=== PATIENT | male | born 1960 | race Caucasian/White ===

== ENCOUNTER 2018-01-16 20:46 | Emergency (ER) | payer SELFPAY ==
[~2018-01-16] VITALS: Ht 185.4 cm; Wt 121.0 kg
[2018-01-16 21:46] LABS: HEMATOCRIT 44.8 % (39.0-50.0); HEMOGLOBIN 15.5 g/dl (14.0-18.0); IMMATURE GRANULOCYTES 0.6 % (0.0-5.0); MEAN CELL VOLUME 83.6 fL CALC (80.0-100.0); MEAN CORPUSCULAR HGB 28.9 pG CALC (26.0-32.0); MEAN CORPUSCULAR HGB CONC 34.6 g/L CALC (32.0-36.0); NEUT# 5.88 thou/uL (1.82-7.42); RED BLOOD COUNT 5.36 mill/uL (4.70-6.10); RED CELL DISTRI WIDTH 13.9 % (11.5-15.5)
[2018-01-16 21:55] LABS: URINE BILIRUBIN - DIPSTICK NEGATIVE (NEGATIVE); URINE BLOOD DIPSTICK MODERATE (NEGATIVE); URINE CLARITY CLEAR; URINE COLOR YELLOW; URINE GLUCOSE - DIPSTICK NEGATIVE (NEGATIVE); URINE KETONE NEGATIVE (NEGATIVE); URINE LEUK ESTERASE NEGATIVE (NEGATIVE); URINE NITRITE - DIPSTICK NEGATIVE (Negative); URINE PROTEIN - DIPSTICK >=300 mg/dL (NEG-TRACE); URINE SPECIFIC GRAVITY >=1.030; URINE UROBILINOGEN - DIPSTICK 0.2 E.U./dL (0.2)
[2018-01-16 21:59] LABS: ALBUMIN 3.4 g/dL (3.2-5.0); ALKALINE PHOSPHATASE 75 u/l (38-126); AMYLASE 68 u/l (30-110); ANION GAP 10 (6-22 (CALC)); BILIRUBIN, TOTAL 0.4 mg/dL (0.0-1.4); BUN 23 mg/dL (9-20); BUN/CREATININE RATIO 16 (12-20 (CALC)); CARBON DIOXIDE 31 mmol/l (22-30); CHLORIDE 105 mmol/l (95-108); CREATININE 1.4 mg/dL (0.7-1.3); GFR 52 ML/MIN (>=60 (CALC)); GFR FOR AFR.AMER. > 60 ML/MIN (>=60 (CALC)); LIPASE 257 u/l (23-300); POTASSIUM 4.6 mmol/l (3.5-5.1); SGOT/AST 42 u/l (17-59); SODIUM 140 mmol/l (137-146); TOTAL PROTEIN 5.9 g/dL (6.3-8.2)
[2018-01-16 22:02] LABS: URINE WBC 0-2 WBC/hpf (0-5)
[2018-01-16] MEDS ORDERED: VOLTAREN - GENE75 MG PO (23:04)
[2018-01-16 23:20] VITALS: BP 140/72
== END 2018-01-16 23:20 | disposition home or self-care (01) | DRG 563 ==
LOC: ED 20:46
PROVIDERS: Family Medicine
DX: S39.011A Strain of muscle, fascia and tendon of abdomen, initial encounter (principal); F17.200 Nicotine dependence, unspecified, uncomplicated; X58.XXXA Exposure to other specified factors, initial encounter
CPT/HCPCS: Q9967

== ENCOUNTER 2018-09-01 05:36 | Emergency (ER) | payer SELFPAY ==
[~2018-09-01] VITALS: Ht 185.4 cm; Wt 121.6 kg
[~2018-09-01 05:36] MED LIST: VOLTAREN - GENE75 MG PO
--- NOTE | 2018-09-01 06:11 | NUR ---
BREATHING TREATMENT GIVEN WITH DUONEB. BREATHING TREATMENT FOR GOOD DEPOSITION TO THE LUNGS.
[2018-09-01 06:25] LABS: HEMATOCRIT 45.8 % (39.0-50.0); HEMOGLOBIN 15.5 g/dl (14.0-18.0); IMMATURE GRANULOCYTES 0.8 % (0.0-5.0); MEAN CELL VOLUME 83.1 fL CALC (80.0-100.0); MEAN CORPUSCULAR HGB 28.1 pG CALC (26.0-32.0); MEAN CORPUSCULAR HGB CONC 33.8 g/L CALC (32.0-36.0); NEUT# 7.1 thou/uL (1.82-7.42); RED BLOOD COUNT 5.51 mill/uL (4.70-6.10); RED CELL DISTRI WIDTH 14.1 % (11.5-15.5)
[2018-09-01 06:41] LABS: ALKALINE PHOSPHATASE 100 u/l (38-126); ANION GAP 14 (6-22 (CALC)); BILIRUBIN, TOTAL 0.4 mg/dL (0.0-1.4); BUN 12 mg/dL (9-20); BUN/CREATININE RATIO 9 (12-20 (CALC)); CARBON DIOXIDE 25 mmol/l (22-30); CHLORIDE 108 mmol/l (95-108); CREATININE 1.4 mg/dL (0.7-1.3); GFR 52 ML/MIN (>=60 (CALC)); GFR FOR AFR.AMER. > 60 ML/MIN (>=60 (CALC)); POTASSIUM 4.6 mmol/l (3.5-5.1); SGOT/AST 38 u/l (17-59); SODIUM 142 mmol/l (137-146); TOTAL PROTEIN 6.8 g/dL (6.3-8.2)
[2018-09-01] MEDS ORDERED: TESSALON PER100 MG PO (06:51)
[2018-09-01] MEDS ORDERED: DOXYCYCL HYC100 MG PO (06:51)
[2018-09-01 06:56] VITALS: BP 125/88
== END 2018-09-01 06:57 | disposition home or self-care (01) | DRG 203 ==
LOC: ED 05:36
PROVIDERS: Family Medicine
DX: J20.9 Acute bronchitis, unspecified (principal); F17.200 Nicotine dependence, unspecified, uncomplicated

== ENCOUNTER 2021-03-09 18:02 | Emergency (ER) | payer SELFPAY ==
[~2021-03-09] VITALS: Ht 185.4 cm; Wt 108.8 kg
[~2021-03-09 18:02] MED LIST changes: +DOXYCYCL HYC100 MG PO; +TESSALON PER100 MG PO
[2021-03-09 19:09] LABS: HEMATOCRIT 42.2 % (39.0-50.0); HEMOGLOBIN 14.1 g/dl (14.0-18.0); IMMATURE GRANULOCYTES 0.4 % (0.0-5.0); MEAN CELL VOLUME 84.1 fL CALC (80.0-100.0); MEAN CORPUSCULAR HGB 28.1 pG CALC (26.0-32.0); MEAN CORPUSCULAR HGB CONC 33.4 g/dL CAL (32.0-36.0); NEUT# 7.18 thou/uL (1.82-7.42); RED BLOOD COUNT 5.02 mill/uL (4.70-6.10)
[2021-03-09 19:11] LABS: URINE BILIRUBIN - DIPSTICK NEGATIVE (NEGATIVE); URINE BLOOD DIPSTICK MODERATE (NEGATIVE); URINE COLOR YELLOW; URINE GLUCOSE - DIPSTICK 100 mg/dL (NEGATIVE); URINE KETONE NEGATIVE (NEGATIVE); URINE LEUK ESTERASE NEGATIVE (NEGATIVE); URINE PROTEIN - DIPSTICK >=300 mg/dL (NEG-TRACE); URINE SPECIFIC GRAVITY 1.025; URINE UROBILINOGEN - DIPSTICK 0.2 E.U./dL (0.2)
[2021-03-09 19:21] LABS: URINE NITRITE - DIPSTICK NEGATIVE (Negative)
[2021-03-09 19:24] LABS: ALBUMIN 3.7 g/dL (3.2-5.0); ALKALINE PHOSPHATASE 99 u/l (38-126); ANION GAP 9 (6-22 (CALC)); BILIRUBIN, TOTAL 0.4 mg/dL (0.0-1.4); BUN 26 mg/dL (9-20); BUN/CREATININE RATIO 10 (12-20 (CALC)); CARBON DIOXIDE 29 mmol/l (22-30); CHLORIDE 105 mmol/l (95-108); GFR 25 ML/MIN (>=60 (CALC)); GFR FOR AFR.AMER. 31 ML/MIN (>=60 (CALC)); LIPASE 114 u/l (23-300); POTASSIUM 4.2 mmol/l (3.5-5.1); SGOT/AST 43 u/l (17-59); SODIUM 139 mmol/l (137-146)
[2021-03-09 19:25] LABS: URINE SQUAMOUS EPITHELIAL CELL FEW EPI/hpf (0-FEW); URINE WBC 0-2 WBC/hpf (0-5)
[2021-03-09 19:26] LABS: URINE HYALINE CAST RARE lpf (NONE-RARE)
[2021-03-09 19:27] LABS: CREATININE 2.6 mg/dL (0.7-1.3)
[2021-03-09] MEDS ORDERED: VIBRAMYCIN100 M2 PO (20:53)
[2021-03-09 21:26] VITALS: BP 142/84
== END 2021-03-09 21:27 | disposition home or self-care (01) | DRG 603 ==
LOC: ED 18:02
PROVIDERS: Family Medicine
DX: L03.311 Cellulitis of abdominal wall (principal); N18.9 Chronic kidney disease, unspecified; F17.210 Nicotine dependence, cigarettes, uncomplicated

== ENCOUNTER 2021-08-01 15:14 | Observation (INO) | payer SELFPAY ==
[~2021-08-01] VITALS: Ht 185.4 cm; Wt 120.0 kg
[~2021-08-01 15:14] MED LIST changes: +VIBRAMYCIN100 M2 PO
[2021-08-01 16:02] LABS: HEMATOCRIT 42.3 % (39.0-50.0); HEMOGLOBIN 14.2 g/dl (14.0-18.0); IMMATURE GRANULOCYTES 0.6 % (0.0-5.0); MEAN CELL VOLUME 84.6 fL CALC (80.0-100.0); MEAN CORPUSCULAR HGB 28.4 pG CALC (26.0-32.0); MEAN CORPUSCULAR HGB CONC 33.6 g/dL CAL (32.0-36.0); NEUT# 6.52 thou/uL (1.82-7.42); RED CELL DISTRI WIDTH 14.4 % (11.5-15.5)
[2021-08-01 16:22] LABS: ALBUMIN 3.8 g/dL (3.2-5.0); BILIRUBIN, TOTAL 0.3 mg/dL (0.0-1.4); CREATININE 2.2 mg/dL (0.7-1.3); POTASSIUM 4.7 mmol/l (3.5-5.1); TOTAL PROTEIN 7.1 g/dL (6.3-8.2)
[2021-08-01 20:06] VITALS: BP 180/91
[2021-08-02 04:10] VITALS: BP 142/70
[2021-08-02 05:26] LABS: HEMATOCRIT 42.9 % (39.0-50.0); HEMOGLOBIN 14.2 g/dl (14.0-18.0); MEAN CORPUSCULAR HGB 28.5 pG CALC (26.0-32.0); MEAN CORPUSCULAR HGB CONC 33.1 g/dL CAL (32.0-36.0); RED BLOOD COUNT 4.99 mill/uL (4.70-6.10); RED CELL DISTRI WIDTH 14.6 % (11.5-15.5)
[2021-08-02 05:47] LABS: MAGNESIUM 1.8 mg/dL (1.6-2.3)
[2021-08-02 05:48] LABS: POTASSIUM 5.4 mmol/l (3.5-5.1)
[2021-08-02 07:05] VITALS: BP 155/92
[2021-08-02 19:05] VITALS: BP 144/85
[2021-08-03 05:09] LABS: HEMATOCRIT 43.7 % (39.0-50.0); HEMOGLOBIN 14.6 g/dl (14.0-18.0); MEAN CELL VOLUME 85.5 fL CALC (80.0-100.0); MEAN CORPUSCULAR HGB 28.6 pG CALC (26.0-32.0); MEAN CORPUSCULAR HGB CONC 33.4 g/dL CAL (32.0-36.0); RED BLOOD COUNT 5.11 mill/uL (4.70-6.10); RED CELL DISTRI WIDTH 14.3 % (11.5-15.5)
[2021-08-03 05:13] VITALS: BP 176/106
[2021-08-03 05:36] LABS: MAGNESIUM 1.7 mg/dL (1.6-2.3)
[2021-08-03 05:39] LABS: POTASSIUM 5.2 mmol/l (3.5-5.1)
[2021-08-03 07:27] VITALS: BP 154/95
[2021-08-03 08:00] VITALS: BP 154/95
[2021-08-03] MEDS ORDERED: KEFLEX500 MG PO (10:45)
== END 2021-08-03 12:25 | disposition home or self-care (01) | DRG 603 ==
LOC: ED 15:14 → ED-I 16:53 → ED 18:11 → MS2 18:11
PROVIDERS: Nurse Practitioner; ADMIT Hospitalist; ATTEND Hospitalist
PROC: 0H97XZZ Drainage of Abdomen Skin, External Approach (ICD-10-PCS; principal; 2021-08-02)
DX: L03.311 Cellulitis of abdominal wall (principal); L02.211 Cutaneous abscess of abdominal wall; N18.4 Chronic kidney disease, stage 4 (severe); I12.9 Hypertensive chronic kidney disease with stage 1 through stage 4 chronic kidney disease, or unspecified chronic kidney disease; F17.200 Nicotine dependence, unspecified, uncomplicated; B95.61 Methicillin susceptible Staphylococcus aureus infection as the cause of diseases classified elsewhere; Z20.822 Contact with and (suspected) exposure to COVID-19
CPT/HCPCS: G0378; J3370; Q9967

== ENCOUNTER 2021-09-08 23:06 | Emergency (ER) | payer SELFPAY ==
[~2021-09-08] VITALS: Ht 185.4 cm; Wt 120.0 kg
[~2021-09-08 23:06] MED LIST changes: +KEFLEX500 MG PO
[2021-09-08 23:34] VITALS: BP 147/92
[2021-09-08 23:46] VITALS: BP 148/87
[2021-09-09 00:01] VITALS: BP 139/82
[2021-09-09] MEDS ORDERED: CEPHALEXIN500 MG PO (00:08)
[2021-09-09 00:12] LABS: HEMOGLOBIN 13.5 g/dl (14.0-18.0); IMMATURE GRANULOCYTES 0.5 % (0.0-5.0); MEAN CELL VOLUME 82.5 fL CALC (80.0-100.0); MEAN CORPUSCULAR HGB 27.8 pG CALC (26.0-32.0); MEAN CORPUSCULAR HGB CONC 33.8 g/dL CAL (32.0-36.0); NEUT# 5.57 thou/uL (1.82-7.42); RED BLOOD COUNT 4.85 mill/uL (4.70-6.10)
[2021-09-09 00:16] VITALS: BP 130/80
[2021-09-09 00:25] LABS: ALBUMIN 3.8 g/dL (3.2-5.0); ALKALINE PHOSPHATASE 104 u/l (38-126); ANION GAP 10 (6-22 (CALC)); BILIRUBIN, TOTAL 0.3 mg/dL (0.0-1.4); BUN 31 mg/dL (9-20); BUN/CREATININE RATIO 12 (12-20 (CALC)); CARBON DIOXIDE 27 mmol/l (22-30); CHLORIDE 104 mmol/l (95-108); CREATININE 2.6 mg/dL (0.7-1.3); GFR FOR AFR.AMER. 31 ML/MIN (>=60 (CALC)); GFR OTHER RACES 25 ML/MIN (>=60 (CALC)); POTASSIUM 4.5 mmol/l (3.5-5.1); SGOT/AST 62 u/l (17-59); SODIUM 137 mmol/l (137-146); TOTAL PROTEIN 6.9 g/dL (6.3-8.2)
[2021-09-09 00:31] VITALS: BP 130/82
[2021-09-09 00:37] LABS: D-DIMER 0.5 mg/L (0.19-0.60); MYOGLOBIN 133 ng/mL (0 - 121)
[2021-09-09 00:39] LABS: ACT PARTIAL THROMBO TIME 22.3 SECONDS (20.0-32.5); PROTHROMBIN TIME 10.3 SECONDS (9.0-12.5)
[2021-09-09 00:46] VITALS: BP 119/93
[2021-09-09] MEDS ORDERED: BACTRIM DS1 TAB PO (02:21)
[2021-09-09 02:33] VITALS: BP 159/83
[2021-09-09] MEDS ORDERED: TRAMADOL HCL50 MG PO (02:35)
[2021-09-09 02:45] VITALS: BP 159/83
[2021-09-09] MEDS ORDERED: ALBUTEROL SUL0.083 % IN (02:45)
== END 2021-09-09 02:50 | disposition home or self-care (01) | DRG 863 ==
LOC: ED 23:06
PROVIDERS: Family Medicine
DX: T81.41XA Infection following a procedure, superficial incisional surgical site, initial encounter (principal); L02.211 Cutaneous abscess of abdominal wall; T81.31XA Disruption of external operation (surgical) wound, not elsewhere classified, initial encounter; E11.22 Type 2 diabetes mellitus with diabetic chronic kidney disease; N18.9 Chronic kidney disease, unspecified; F17.200 Nicotine dependence, unspecified, uncomplicated; B96.89 Other specified bacterial agents as the cause of diseases classified elsewhere; Y83.8 Other surgical procedures as the cause of abnormal reaction of the patient, or of later complication, without mention of misadventure at the time of the procedure

== ENCOUNTER 2021-09-10 18:53 | Emergency (ER) | payer SELFPAY ==
[~2021-09-10] VITALS: Ht 185.4 cm; Wt 120.0 kg
[~2021-09-10 18:53] MED LIST changes: +ALBUTEROL SUL0.083 % IN; +BACTRIM DS1 TAB PO; +CEPHALEXIN500 MG PO; +TRAMADOL HCL50 MG PO
[2021-09-10 19:34] VITALS: BP 113/85
== END 2021-09-10 19:45 | disposition home or self-care (01) | DRG 951 ==
LOC: ED 18:53
DX: Z48.01 Encounter for change or removal of surgical wound dressing (principal); I10 Essential (primary) hypertension; F17.200 Nicotine dependence, unspecified, uncomplicated

== ENCOUNTER 2021-09-12 10:28 | Emergency (ER) | payer SELFPAY ==
[~2021-09-12] VITALS: Ht 185.4 cm; Wt 122.0 kg
[2021-09-12 12:44] VITALS: BP 168/91
== END 2021-09-12 12:40 | disposition home or self-care (01) | DRG 950 ==
LOC: ED 10:28
DX: T81.31XD Disruption of external operation (surgical) wound, not elsewhere classified, subsequent encounter (principal); Y83.8 Other surgical procedures as the cause of abnormal reaction of the patient, or of later complication, without mention of misadventure at the time of the procedure; I10 Essential (primary) hypertension; F17.200 Nicotine dependence, unspecified, uncomplicated

== ENCOUNTER 2021-10-29 19:51 | Emergency (ER) | payer SELFPAY ==
[~2021-10-29] VITALS: Ht 185.4 cm; Wt 120.4 kg
[2021-10-29] VITALS (7 sets, daily range): BP systolic 110–170; BP diastolic 82–105
[2021-10-29 21:37] LABS: HEMATOCRIT 39.4 % (39.0-50.0); HEMOGLOBIN 13.3 g/dl (14.0-18.0); IMMATURE GRANULOCYTES 0.6 % (0.0-5.0); MEAN CELL VOLUME 83.7 fL CALC (80.0-100.0); MEAN CORPUSCULAR HGB 28.2 pG CALC (26.0-32.0); MEAN CORPUSCULAR HGB CONC 33.8 g/dL CAL (32.0-36.0); NEUT# 4.78 thou/uL (1.82-7.42); RED BLOOD COUNT 4.71 mill/uL (4.70-6.10); RED CELL DISTRI WIDTH 14.3 % (11.5-15.5)
[2021-10-29 21:53] LABS: ALBUMIN 3.5 g/dL (3.2-5.0); BILIRUBIN, TOTAL 0.2 mg/dL (0.0-1.4); CREATININE 2.3 mg/dL (0.7-1.3); POTASSIUM 4.8 mmol/l (3.5-5.1); TOTAL PROTEIN 5.9 g/dL (6.3-8.2)
[2021-10-29 22:07] LABS: MYOGLOBIN 115 ng/mL (0 - 121)
[2021-10-29] MEDS ORDERED: KEFLEX500 MG PO (23:02)
== END 2021-10-29 23:48 | disposition home or self-care (01) | DRG 639 ==
LOC: ED 19:51
PROVIDERS: Emergency Medicine
DX: E11.65 Type 2 diabetes mellitus with hyperglycemia (principal); J06.9 Acute upper respiratory infection, unspecified

== ENCOUNTER 2021-11-14 09:05 | Emergency (ER) | payer SELFPAY ==
[2021-11-14] VITALS (9 sets, daily range): BP systolic 132–163; BP diastolic 86–95
[~2021-11-14] VITALS: Ht 185.4 cm; Wt 120.4 kg
[2021-11-14 09:51] LABS: HEMOGLOBIN 13.2 g/dl (14.0-18.0); IMMATURE GRANULOCYTES 0.7 % (0.0-5.0); MEAN CORPUSCULAR HGB 28.8 pG CALC (26.0-32.0); MEAN CORPUSCULAR HGB CONC 34.7 g/dL CAL (32.0-36.0); NEUT# 4.28 thou/uL (1.82-7.42); RED BLOOD COUNT 4.58 mill/uL (4.70-6.10); RED CELL DISTRI WIDTH 14.4 % (11.5-15.5)
[2021-11-14 10:35] LABS: ALBUMIN 3.9 g/dL (3.2-5.0); BILIRUBIN, TOTAL 0.3 mg/dL (0.0-1.4); CREATININE 2.2 mg/dL (0.7-1.3); POTASSIUM 5.2 mmol/l (3.5-5.1); TOTAL PROTEIN 6.6 g/dL (6.3-8.2)
[2021-11-14] MEDS ORDERED: GLIPIZIDE5 M2 PO (12:28)
[2021-11-14] MEDS ORDERED: ZESTRIL5 M1 PO (12:28)
[2021-11-14] MEDS ORDERED: ATORVASTATIN CA80 MG PO (12:28)
[2021-11-14] MEDS ORDERED: TRAMADOL HYDROC50 M1 PO (12:33)
[2021-11-14] MEDS ORDERED: HYDROCHLOROT12.5 M1 PO (12:33)
== END 2021-11-14 13:32 | disposition left against medical advice (07) | DRG 313 ==
LOC: ED 09:05
PROVIDERS: Family Medicine
DX: R07.9 Chest pain, unspecified (principal); E11.8 Type 2 diabetes mellitus with unspecified complications; I10 Essential (primary) hypertension; E66.9 Obesity, unspecified

== ENCOUNTER 2022-02-24 17:01 | Emergency (ER) | payer SELFPAY ==
[~2022-02-24] VITALS: Ht 185.4 cm; Wt 120.4 kg
[2022-02-24] VITALS (9 sets, daily range): BP systolic 109–155; BP diastolic 74–84
[~2022-02-24 17:01] MED LIST changes: +ATORVASTATIN CA80 MG PO; +GLIPIZIDE5 M2 PO; +HYDROCHLOROT12.5 M1 PO; +TRAMADOL HYDROC50 M1 PO; +ZESTRIL5 M1 PO
[2022-02-24 17:51] LABS: HEMATOCRIT 35.3 % (39.0-50.0); HEMOGLOBIN 12.4 g/dl (14.0-18.0); IMMATURE GRANULOCYTES 0.9 % (0.0-5.0); MEAN CELL VOLUME 83.6 fL CALC (80.0-100.0); MEAN CORPUSCULAR HGB 29.4 pG CALC (26.0-32.0); MEAN CORPUSCULAR HGB CONC 35.1 g/dL CAL (32.0-36.0); NEUT# 9.48 thou/uL (1.82-7.42); RED BLOOD COUNT 4.22 mill/uL (4.70-6.10); RED CELL DISTRI WIDTH 15.4 % (11.5-15.5)
[2022-02-24 18:02] LABS: ALBUMIN 3.9 g/dL (3.2-5.0); ALKALINE PHOSPHATASE 129 u/l (38-126); ANION GAP 14 (6-22 (CALC)); BILIRUBIN, TOTAL 0.3 mg/dL (0.0-1.4); CARBON DIOXIDE 25 mmol/l (22-30); CHLORIDE 100 mmol/l (95-108); CREATININE 2.6 mg/dL (0.7-1.3); GFR FOR AFR.AMER. 31 ML/MIN (>=60 (CALC)); GFR OTHER RACES 25 ML/MIN (>=60 (CALC)); SGOT/AST 36 u/l (19-48); SODIUM 134 mmol/l (137-146); TOTAL PROTEIN 6.9 g/dL (6.3-8.2)
[2022-02-24 18:04] LABS: BUN 48 mg/dL (8-23); BUN/CREATININE RATIO 18 (12-20 (CALC))
[2022-02-24 20:23] LABS: URINE BILIRUBIN - DIPSTICK NEGATIVE (NEGATIVE); URINE BLOOD DIPSTICK SMALL (NEGATIVE); URINE COLOR YELLOW; URINE GLUCOSE - DIPSTICK 500 mg/dL (NEGATIVE); URINE KETONE NEGATIVE (NEGATIVE); URINE LEUK ESTERASE NEGATIVE (NEGATIVE); URINE PROTEIN - DIPSTICK 100 mg/dL (NEG-TRACE); URINE UROBILINOGEN - DIPSTICK 0.2 E.U./dL (0.2)
[2022-02-24 20:34] LABS: URINE NITRITE - DIPSTICK NEGATIVE (Negative)
[2022-02-24 20:35] LABS: URINE SQUAMOUS EPITHELIAL CELL FEW EPI/hpf (0-FEW); URINE WBC 0-2 WBC/hpf (0-5)
[2022-02-24] MEDS ORDERED: VIBRAMYCIN100 M2 PO (20:49)
[2022-02-24] MEDS ORDERED: GLIPIZIDE10 M2 PO (20:49)
== END 2022-02-24 21:06 | disposition home or self-care (01) | DRG 639 ==
LOC: ED 17:01
PROVIDERS: Family Medicine
DX: E11.65 Type 2 diabetes mellitus with hyperglycemia (principal); I10 Essential (primary) hypertension; J20.9 Acute bronchitis, unspecified; F17.210 Nicotine dependence, cigarettes, uncomplicated; Z79.4 Long term (current) use of insulin; Z20.822 Contact with and (suspected) exposure to COVID-19

== ENCOUNTER 2022-06-17 11:34 | Emergency (ER) | payer SELFPAY ==
[2022-06-17] VITALS (7 sets, daily range): BP systolic 141–161; BP diastolic 83–127
[~2022-06-17] VITALS: Ht 185.4 cm; Wt 120.0 kg
[~2022-06-17 11:34] MED LIST changes: +GLIPIZIDE10 M2 PO
[2022-06-17 12:22] LABS: BASO% 0.4 % (0-3); EOS% 3.4 % (0-8); HEMOGLOBIN 13.9 g/dl (14.0-18.0); IMMATURE GRANULOCYTES 0.4 % (0.0-5.0); LYMPH% 18.5 % (15-41); MEAN CORPUSCULAR HGB 27.4 pG CALC (26.0-32.0); MONO% 7.1 % (2-13); NEUT# 5.24 thou/uL (1.82-7.42); NEUT% 70.2 % (42-76); RED BLOOD COUNT 5.07 mill/uL (4.70-6.10); RED CELL DISTRI WIDTH 14.3 % (11.5-15.5)
[2022-06-17 12:31] LABS: HEMATOCRIT 42.1 % (39.0-50.0)
[2022-06-17 12:42] LABS: ALBUMIN 3.9 g/dL (3.2-5.0); ALKALINE PHOSPHATASE 94 u/l (38-126); ANION GAP 11 (6-22 (CALC)); BILIRUBIN, TOTAL 0.2 mg/dL (0.2-1.3); BUN/CREATININE RATIO 10 (12-20 (CALC)); CARBON DIOXIDE 26 mmol/l (22-30); CHLORIDE 107 mmol/l (95-108); CREATININE 2.4 mg/dL (0.7-1.3); GFR FOR AFR.AMER. 33 ML/MIN (>=60 (CALC)); GFR OTHER RACES 28 ML/MIN (>=60 (CALC)); POTASSIUM 4.8 mmol/l (3.5-5.1); SGOT/AST 41 u/l (19-48); SODIUM 140 mmol/l (137-146); TOTAL PROTEIN 6.7 g/dL (6.3-8.2)
[2022-06-17 12:48] LABS: BUN 23 mg/dL (8-23)
[2022-06-17] MEDS ORDERED: ZPAK PO (13:32)
[2022-06-17] MEDS ORDERED: LIPITOR40 M1 PO (13:32)
[2022-06-17] MEDS ORDERED: GLIPIZIDE10 M3 PO (13:32)
[2022-06-17] MEDS ORDERED: LOSARTAN POTASS50 MG PO (13:32)
[2022-06-17] MEDS ORDERED: VENTOLIN HFA108 MCG PO (13:32)
[2022-06-17] MEDS ORDERED: IPRATROPIU0.5 MG/3 M IN (13:32)
[2022-06-17] MEDS ORDERED: PREDNISONE50 MG PO (13:32)
== END 2022-06-17 14:10 | disposition left against medical advice (07) | DRG 192 ==
LOC: ED 11:34
PROVIDERS: Family Medicine
DX: J44.1 Chronic obstructive pulmonary disease with (acute) exacerbation (principal); N18.9 Chronic kidney disease, unspecified; I12.9 Hypertensive chronic kidney disease with stage 1 through stage 4 chronic kidney disease, or unspecified chronic kidney disease; E11.9 Type 2 diabetes mellitus without complications; Z79.84 Long term (current) use of oral hypoglycemic drugs; Z53.29 Procedure and treatment not carried out because of patient's decision for other reasons; F17.210 Nicotine dependence, cigarettes, uncomplicated

== ENCOUNTER 2022-06-24 18:22 | Observation (INO) | payer SELFPAY ==
[~2022-06-24] VITALS: Ht 185.4 cm; Wt 127.0 kg
[~2022-06-24 18:22] MED LIST changes: +GLIPIZIDE10 M3 PO; +IPRATROPIU0.5 MG/3 M IN; +LIPITOR40 M1 PO; +LOSARTAN POTASS50 MG PO; +PREDNISONE50 MG PO; +VENTOLIN HFA108 MCG PO; +ZPAK PO
[2022-06-24 18:51] VITALS: BP 161/87
--- NOTE | 2022-06-24 18:54 | NUR ---
pt states he has not felt himself today, states that he has not taken his glipizide today. states his last blood sugar was 459.
[2022-06-24 19:00] VITALS: BP 153/88
[2022-06-24 19:18] LABS: BASO% 0.2 % (0-3); EOS% 2.6 % (0-8); HEMOGLOBIN 13.7 g/dl (14.0-18.0); IMMATURE GRANULOCYTES 1.1 % (0.0-5.0); LYMPH% 18.6 % (15-41); MEAN CELL VOLUME 82.4 fL CALC (80.0-100.0); MEAN CORPUSCULAR HGB 26.9 pG CALC (26.0-32.0); MEAN CORPUSCULAR HGB CONC 32.6 g/dL CAL (32.0-36.0); MONO% 5.5 % (2-13); NEUT# 6.97 thou/uL (1.82-7.42); RED BLOOD COUNT 5.1 mill/uL (4.70-6.10); RED CELL DISTRI WIDTH 14.7 % (11.5-15.5)
[2022-06-24 19:30] VITALS: BP 146/88
[2022-06-24 19:32] LABS: ALBUMIN 3.6 g/dL (3.2-5.0); ALKALINE PHOSPHATASE 112 u/l (38-126); ANION GAP 10 (6-22 (CALC)); BILIRUBIN, TOTAL 0.3 mg/dL (0.2-1.3); BUN 43 mg/dL (8-23); BUN/CREATININE RATIO 18 (12-20 (CALC)); CARBON DIOXIDE 31 mmol/l (22-30); CHLORIDE 99 mmol/l (95-108); CREATININE 2.4 mg/dL (0.7-1.3); GFR FOR AFR.AMER. 33 ML/MIN (>=60 (CALC)); GFR OTHER RACES 28 ML/MIN (>=60 (CALC)); POTASSIUM 4.8 mmol/l (3.5-5.1); SGOT/AST 37 u/l (19-48); SODIUM 136 mmol/l (137-146); TOTAL PROTEIN 6.2 g/dL (6.3-8.2)
[2022-06-24 19:42] LABS: URINE BILIRUBIN - DIPSTICK NEGATIVE (NEGATIVE); URINE BLOOD DIPSTICK SMALL (NEGATIVE); URINE COLOR YELLOW; URINE GLUCOSE - DIPSTICK >=1000 mg/dL (NEGATIVE); URINE KETONE NEGATIVE (NEGATIVE); URINE LEUK ESTERASE NEGATIVE (NEGATIVE); URINE NITRITE - DIPSTICK NEGATIVE (Negative); URINE PH 6.5 (4.5-8.0); URINE PROTEIN - DIPSTICK >=300 mg/dL (NEG-TRACE); URINE SPECIFIC GRAVITY 1.015; URINE UROBILINOGEN - DIPSTICK 0.2 E.U./dL (0.2)
[2022-06-24 20:01] VITALS: BP 153/90
[2022-06-24 20:31] VITALS: BP 127/92
--- NOTE | 2022-06-24 21:00 | NUR ---
PT HAS C/O OF LEG CRAMPS, HELPED PT STAND AND CRAMPS SUBSIDED. VSS, NAD.
--- NOTE | 2022-06-24 21:56 | NUR ---
MD GAVE ORDERS FOR ADA DIET AND OK TO HAVE FLUIDS, PT BEING ADMITTED AND VSS, NAD AT THIS TIME.
--- NOTE | 2022-06-24 22:28 | NUR ---
ICU 7 given for bed assignment.
--- NOTE | 2022-06-25 01:14 | NUR ---
PATIENT ADMITTED TO ICU, MS ADMIT ICU OVERFLOW.
[2022-06-25 05:14] LABS: BASO% 0.2 % (0-3); EOS% 3.1 % (0-8); HEMATOCRIT 42.3 % (39.0-50.0); HEMOGLOBIN 13.7 g/dl (14.0-18.0); IMMATURE GRANULOCYTES 2.2 % (0.0-5.0); LYMPH% 18.9 % (15-41); MEAN CELL VOLUME 83.8 fL CALC (80.0-100.0); MEAN CORPUSCULAR HGB 27.1 pG CALC (26.0-32.0); MEAN CORPUSCULAR HGB CONC 32.4 g/dL CAL (32.0-36.0); MONO% 6.8 % (2-13); NEUT# 6.28 thou/uL (1.82-7.42); NEUT% 68.8 % (42-76); RED BLOOD COUNT 5.05 mill/uL (4.70-6.10); RED CELL DISTRI WIDTH 14.6 % (11.5-15.5)
[2022-06-25 05:27] LABS: ALBUMIN 3.4 g/dL (3.2-5.0); BILIRUBIN, TOTAL 0.3 mg/dL (0.2-1.3); CREATININE 2.1 mg/dL (0.7-1.3); MAGNESIUM 1.6 mg/dL (1.6-2.3); TOTAL PROTEIN 5.7 g/dL (6.3-8.2)
[2022-06-25 05:34] LABS: POTASSIUM 5.4 mmol/l (3.5-5.1)
--- NOTE | 2022-06-25 08:08 | NUR ---
PT AWAKE, ALERT, ORIENTED X 3, SITTING UP IN CHAIR AT BEDSIDE. PT STATES THAT HE RAN OUT OF HIS MEDS, STARTED FEELING POORL, CAME TO HOSPITAL. NAD.
--- NOTE | 2022-06-25 10:47 | NUR ---
PT SEEN BY DR KOENIG THIS MORNING, DISCUSSED LONG LASTING INSULIN. PT AGREED TO SPEND ONE MORE NIGHT.
--- NOTE | 2022-06-25 13:20 | NUR ---
PT SEEN BY TAMARA FROM DIETARY, SPEAKS ABOUT GOOD DIETARY CHOICES. AIC RESULTED, SHOWN TO PT. NO DISTRESS, AMBULATORY TO BR.
--- NOTE | 2022-06-25 18:23 | NUR ---
PT REMAINS AT REST IN THE BED, AMBULATORY TO BR NEEDED. GIRLFRIEND AT BEDSIDE. BS 147, PT PLEASED.
--- NOTE | 2022-06-25 19:15 | NUR ---
awakens easily. denies distress. hydraulic jack mechanic shows sinus rhythm. #20 saline locks lfa & rac. po fluids taken well. voids per urinal. fall precautions cont.
[2022-06-25 19:33] VITALS: BP 142/80
[2022-06-25 20:00] VITALS: BP 134/75
--- NOTE | 2022-06-25 21:00 | NUR ---
sitting on side of bed eating chex mix. glucometer 309. pt upset because of result. instructed pt he was eating handfuls of carbs. asked pt if he wanted dietary to see him & recommend a diet. pt refused & said "i'm going home tomorrow." asked pt if he smoked. he said he did. offered nicotine patch but pt refused.
[2022-06-25 21:01] VITALS: BP 172/92
--- NOTE | 2022-06-25 22:00 | NUR ---
awake. using cell phone. no apparent distress.
[2022-06-25 22:01] VITALS: BP 121/82
[2022-06-25 23:00] VITALS: BP 146/76
--- NOTE | 2022-06-26 00:01 | NUR ---
eyes closed. no distress. cardic monitor shows sinus rhythm ivcd.
--- NOTE | 2022-06-26 02:00 | NUR ---
resting quietly. resps even & unlabored. no apparent distress.
--- NOTE | 2022-06-26 04:45 | NUR ---
lab here. blood drawn.
[2022-06-26 05:38] LABS: HEMATOCRIT 42.1 % (39.0-50.0); HEMOGLOBIN 13.8 g/dl (14.0-18.0); MEAN CELL VOLUME 83.4 fL CALC (80.0-100.0); MEAN CORPUSCULAR HGB 27.3 pG CALC (26.0-32.0); MEAN CORPUSCULAR HGB CONC 32.8 g/dL CAL (32.0-36.0); RED BLOOD COUNT 5.05 mill/uL (4.70-6.10); RED CELL DISTRI WIDTH 14.5 % (11.5-15.5)
[2022-06-26 05:55] LABS: ALBUMIN 3.7 g/dL (3.2-5.0); BILIRUBIN, TOTAL 0.2 mg/dL (0.2-1.3); CREATININE 2.5 mg/dL (0.7-1.3); MAGNESIUM 1.7 mg/dL (1.6-2.3); POTASSIUM 4.7 mmol/l (3.5-5.1); TOTAL PROTEIN 6.3 g/dL (6.3-8.2)
--- NOTE | 2022-06-26 07:37 | NUR ---
PT AWAKE, ALERT, ORIENTED X 3. PT SITTING UP IN BED, PROVIDED COFFEE. BS 175 THIS MORNING, PROVIDED 1 UNIT HUMALOG PER SCALE.
[2022-06-26] MEDS ORDERED: GABAPENTIN100 MG PO (08:43)
[2022-06-26] MEDS ORDERED: LANTUS SOL100 UNIT/M SC (08:44)
--- NOTE | 2022-06-26 10:15 | NUR ---
PT VERBALIZES UNDERSTANDING OF DC INSTRUCTIONS, TAKEN BY WHEELCHAIR TO VEHICLE. PT LEAVES DMH IN STABLE CONDITION.
--- NOTE | 2022-06-27 15:15 | NUR ---
Reviewed wound culture result from 06/25/22, growing MSSA. Discussed with Dr Montana and received verbal order for Augmentin 875 mg po bid x 10 days. Contacted patient and advised to start Augmentin. Rx called in to [facility].
== END 2022-06-26 10:15 | disposition home or self-care (01) | DRG 639 ==
LOC: ED 18:22 → ICU 22:44
PROVIDERS: Family Medicine; Internal Medicine; ADMIT Internal Medicine; ATTEND Internal Medicine
DX: E11.65 Type 2 diabetes mellitus with hyperglycemia (principal); I12.9 Hypertensive chronic kidney disease with stage 1 through stage 4 chronic kidney disease, or unspecified chronic kidney disease; E11.22 Type 2 diabetes mellitus with diabetic chronic kidney disease; N18.9 Chronic kidney disease, unspecified; E11.42 Type 2 diabetes mellitus with diabetic polyneuropathy; J44.9 Chronic obstructive pulmonary disease, unspecified; I87.2 Venous insufficiency (chronic) (peripheral); E66.9 Obesity, unspecified; R60.0 Localized edema; E78.00 Pure hypercholesterolemia, unspecified; F17.200 Nicotine dependence, unspecified, uncomplicated; T81.89XA Other complications of procedures, not elsewhere classified, initial encounter; Y83.8 Other surgical procedures as the cause of abnormal reaction of the patient, or of later complication, without mention of misadventure at the time of the procedure; Z79.84 Long term (current) use of oral hypoglycemic drugs

== ENCOUNTER 2022-09-12 14:24 | Observation (INO) | payer SELFPAY ==
[2022-09-12] VITALS (14 sets, daily range): BP systolic 107–159; BP diastolic 66–94
[~2022-09-12] VITALS: Ht 185.4 cm; Wt 130.0 kg
[~2022-09-12 14:24] MED LIST changes: +GABAPENTIN100 MG PO; +LANTUS SOL100 UNIT/M SC
[2022-09-12 14:50] LABS: BASO% 0.3 % (0-3); HEMATOCRIT 39.5 % (39.0-50.0); IMMATURE GRANULOCYTES 0.5 % (0.0-5.0); MEAN CELL VOLUME 82.8 fL CALC (80.0-100.0); MEAN CORPUSCULAR HGB 27.3 pG CALC (26.0-32.0); MEAN CORPUSCULAR HGB CONC 32.9 g/dL CAL (32.0-36.0); MONO% 6.3 % (2-13); NEUT# 5.42 thou/uL (1.82-7.42); NEUT% 67.9 % (42-76); RED BLOOD COUNT 4.77 mill/uL (4.70-6.10); RED CELL DISTRI WIDTH 14.6 % (11.5-15.5)
[2022-09-12 15:09] LABS: ALBUMIN 3.8 g/dL (3.2-5.0); ALKALINE PHOSPHATASE 96 u/l (38-126); ANION GAP 10 (6-22 (CALC)); BUN 23 mg/dL (8-23); BUN/CREATININE RATIO 9 (12-20 (CALC)); CARBON DIOXIDE 28 mmol/l (22-30); CHLORIDE 106 mmol/l (95-108); CREATININE 2.5 mg/dL (0.7-1.3); GFR FOR AFR.AMER. 32 ML/MIN (>=60 (CALC)); GFR OTHER RACES 26 ML/MIN (>=60 (CALC)); POTASSIUM 4.7 mmol/l (3.5-5.1); SGOT/AST 53 u/l (19-48); SODIUM 139 mmol/l (137-146); TOTAL PROTEIN 6.6 g/dL (6.3-8.2)
[2022-09-12 15:15] LABS: BILIRUBIN, TOTAL 0.5 mg/dL (0.2-1.3)
[2022-09-12 22:45] LABS: URINE BILIRUBIN - DIPSTICK NEGATIVE (NEGATIVE); URINE BLOOD DIPSTICK SMALL (NEGATIVE); URINE COLOR YELLOW; URINE GLUCOSE - DIPSTICK 250 mg/dL (NEGATIVE); URINE KETONE NEGATIVE (NEGATIVE); URINE LEUK ESTERASE NEGATIVE (NEGATIVE); URINE PH 6.5 (4.5-8.0); URINE PROTEIN - DIPSTICK >=300 mg/dL (NEG-TRACE); URINE SPECIFIC GRAVITY 1.025; URINE UROBILINOGEN - DIPSTICK 0.2 E.U./dL (0.2)
[2022-09-12 22:46] LABS: URINE NITRITE - DIPSTICK NEGATIVE (Negative)
[2022-09-12 22:47] LABS: URINE WBC 0-2 WBC/hpf (0-5)
[2022-09-13 00:11] VITALS: BP 162/75
[2022-09-13 04:14] VITALS: BP 176/83
[2022-09-13 04:54] VITALS: BP 151/82
[2022-09-13 06:55] VITALS: BP 133/80
[2022-09-13] MEDS ORDERED: GABAPENTIN100 MG PO (09:47)
[2022-09-13] MEDS ORDERED: MEDDOSEPAK PO (09:48)
[2022-09-13] MEDS ORDERED: HUMULIN 70/30 SC (09:48)
[2022-09-13] MEDS ORDERED: TRAMADOL HCL50 MG PO (09:49)
== END 2022-09-13 10:22 | disposition home or self-care (01) | DRG 313 ==
LOC: ED 14:24 → MS2 18:08
PROVIDERS: Nurse Practitioner; ADMIT Internal Medicine; ATTEND Internal Medicine
DX: R07.9 Chest pain, unspecified (principal); J44.1 Chronic obstructive pulmonary disease with (acute) exacerbation; I12.9 Hypertensive chronic kidney disease with stage 1 through stage 4 chronic kidney disease, or unspecified chronic kidney disease; E11.22 Type 2 diabetes mellitus with diabetic chronic kidney disease; N18.9 Chronic kidney disease, unspecified; E11.65 Type 2 diabetes mellitus with hyperglycemia; E11.40 Type 2 diabetes mellitus with diabetic neuropathy, unspecified; E78.5 Hyperlipidemia, unspecified; E78.00 Pure hypercholesterolemia, unspecified; F17.200 Nicotine dependence, unspecified, uncomplicated; Z79.4 Long term (current) use of insulin; Z79.82 Long term (current) use of aspirin
CPT/HCPCS: G0378

== ENCOUNTER 2022-09-14 06:51 | Observation (INO) | payer SELFPAY ==
[~2022-09-14] VITALS: Ht 185.4 cm; Wt 130.0 kg
[2022-09-14] VITALS (15 sets, daily range): BP systolic 111–144; BP diastolic 54–85
[~2022-09-14 06:51] MED LIST changes: +HUMULIN 70/30 SC; +MEDDOSEPAK PO
[2022-09-14 07:13] LABS: BASO% 0.1 % (0-3); EOS% 0.4 % (0-8); HEMOGLOBIN 13.5 g/dl (14.0-18.0); IMMATURE GRANULOCYTES 0.6 % (0.0-5.0); LYMPH% 11.4 % (15-41); MEAN CELL VOLUME 83.7 fL CALC (80.0-100.0); MEAN CORPUSCULAR HGB 27.6 pG CALC (26.0-32.0); MEAN CORPUSCULAR HGB CONC 32.9 g/dL CAL (32.0-36.0); MONO% 4.6 % (2-13); NEUT# 11.91 thou/uL (1.82-7.42); NEUT% 82.9 % (42-76); RED BLOOD COUNT 4.9 mill/uL (4.70-6.10); RED CELL DISTRI WIDTH 14.5 % (11.5-15.5)
[2022-09-14 07:47] LABS: URINE BILIRUBIN - DIPSTICK NEGATIVE (NEGATIVE); URINE BLOOD DIPSTICK MODERATE (NEGATIVE); URINE COLOR YELLOW; URINE GLUCOSE - DIPSTICK 500 mg/dL (NEGATIVE); URINE KETONE NEGATIVE (NEGATIVE); URINE LEUK ESTERASE NEGATIVE (NEGATIVE); URINE PROTEIN - DIPSTICK >=300 mg/dL (NEG-TRACE); URINE SPECIFIC GRAVITY 1.025; URINE UROBILINOGEN - DIPSTICK 0.2 E.U./dL (0.2)
[2022-09-14 07:48] LABS: URINE NITRITE - DIPSTICK NEGATIVE (Negative)
[2022-09-14 07:50] LABS: ALBUMIN 3.9 g/dL (3.2-5.0); ALKALINE PHOSPHATASE 113 u/l (38-126); ANION GAP 17 (6-22 (CALC)); BILIRUBIN, TOTAL 0.4 mg/dL (0.2-1.3); CARBON DIOXIDE 24 mmol/l (22-30); CHLORIDE 101 mmol/l (95-108); CREATININE 2.6 mg/dL (0.7-1.3); GFR FOR AFR.AMER. 31 ML/MIN (>=60 (CALC)); GFR OTHER RACES 25 ML/MIN (>=60 (CALC)); SGOT/AST 35 u/l (19-48); SODIUM 137 mmol/l (137-146); TOTAL PROTEIN 6.6 g/dL (6.3-8.2)
[2022-09-14 07:51] LABS: BUN 46 mg/dL (8-23); BUN/CREATININE RATIO 18 (12-20 (CALC)); POTASSIUM 5.3 mmol/l (3.5-5.1)
[2022-09-14 07:57] LABS: URINE RBC 0-2 RBC/hpf (0-5); URINE SQUAMOUS EPITHELIAL CELL FEW EPI/hpf (0-FEW); URINE WBC 0-2 WBC/hpf (0-5)
[2022-09-14 07:59] LABS: URINE CASTS FEW lpf (NONE-RARE)
[2022-09-14 07:59] LABS: PROTHROMBIN TIME 9.9 SECONDS (9.0-12.5)
[2022-09-14 09:03] LABS: CHOLESTEROL HDL RATIO 3.6 (<4.4 (CALC))
[2022-09-15 04:40] VITALS: BP 120/70
[2022-09-15 05:11] VITALS: BP 120/70
[2022-09-15 05:24] LABS: HEMATOCRIT 42.6 % (39.0-50.0); HEMOGLOBIN 13.7 g/dl (14.0-18.0); MEAN CELL VOLUME 85.7 fL CALC (80.0-100.0); MEAN CORPUSCULAR HGB 27.6 pG CALC (26.0-32.0); MEAN CORPUSCULAR HGB CONC 32.2 g/dL CAL (32.0-36.0); RED BLOOD COUNT 4.97 mill/uL (4.70-6.10); RED CELL DISTRI WIDTH 14.9 % (11.5-15.5)
[2022-09-15 05:39] LABS: ALBUMIN 3.7 g/dL (3.2-5.0); BILIRUBIN, TOTAL 0.4 mg/dL (0.2-1.3); CREATININE 2.7 mg/dL (0.7-1.3); MAGNESIUM 1.8 mg/dL (1.6-2.3); POTASSIUM 5.1 mmol/l (3.5-5.1); TOTAL PROTEIN 6.2 g/dL (6.3-8.2)
[2022-09-15 06:39] VITALS: BP 135/71
[2022-09-15] MEDS ORDERED: ASPIRIN ADULT L81 M2 PO (10:25)
[2022-09-15 11:05] VITALS: BP 113/66
== END 2022-09-15 13:35 | disposition home or self-care (01) | DRG 69 ==
LOC: ED 06:51 → MS2 08:35
PROVIDERS: Family Medicine; ADMIT Internal Medicine; ATTEND Internal Medicine
DX: G45.9 Transient cerebral ischemic attack, unspecified (principal); J44.1 Chronic obstructive pulmonary disease with (acute) exacerbation; I10 Essential (primary) hypertension; E11.42 Type 2 diabetes mellitus with diabetic polyneuropathy; E78.00 Pure hypercholesterolemia, unspecified; F17.200 Nicotine dependence, unspecified, uncomplicated; Z79.4 Long term (current) use of insulin
CPT/HCPCS: G0378

== ENCOUNTER 2022-10-17 15:11 | Inpatient (IN) | payer SELFPAY ==
[2022-10-17] VITALS (16 sets, daily range): BP systolic 108–160; BP diastolic 55–95
[~2022-10-17] VITALS: Ht 185.4 cm; Wt 128.4 kg
[~2022-10-17 15:11] MED LIST changes: +ASPIRIN ADULT L81 M2 PO
--- NOTE | 2022-10-17 15:37 | NUR ---
PATIENT BROUGHT BACK INTO THE ED VIA WHEELCHAIR. PATIENT ACCOMPANIED BY . PATIENT PLACED IN ED ROOM 14. PATIENT COMPLAINT OF SOB X 2DAYS.
--- NOTE | 2022-10-17 15:38 | NUR ---
PROVIDER AT BEDSIDE. PROVIDER ADVISED PATIENT OF PLAN OF CARE. PATIENT VERBALIZED UNDERSTANDING OF PLAN OF CARE.
[2022-10-17 15:54] LABS: BASO% 0.2 % (0-3); EOS% 2.7 % (0-8); HEMATOCRIT 38.8 % (39.0-50.0); HEMOGLOBIN 12.8 g/dl (14.0-18.0); IMMATURE GRANULOCYTES 0.8 % (0.0-5.0); LYMPH% 18.8 % (15-41); MEAN CELL VOLUME 84.9 fL CALC (80.0-100.0); MONO% 6.7 % (2-13); NEUT# 6.23 thou/uL (1.82-7.42); NEUT% 70.8 % (42-76); RED BLOOD COUNT 4.57 mill/uL (4.70-6.10); RED CELL DISTRI WIDTH 15.2 % (11.5-15.5)
[2022-10-17 16:04] LABS: ALBUMIN 3.9 g/dL (3.2-5.0); ALKALINE PHOSPHATASE 117 u/l (38-126); ANION GAP 12 (6-22 (CALC)); BILIRUBIN, TOTAL 0.5 mg/dL (0.2-1.3); BUN 30 mg/dL (8-23); BUN/CREATININE RATIO 12 (12-20 (CALC)); CARBON DIOXIDE 27 mmol/l (22-30); CHLORIDE 104 mmol/l (95-108); CREATININE 2.5 mg/dL (0.7-1.3); GFR FOR AFR.AMER. 32 ML/MIN (>=60 (CALC)); GFR OTHER RACES 26 ML/MIN (>=60 (CALC)); SGOT/AST 44 u/l (19-48); SODIUM 138 mmol/l (137-146); TOTAL PROTEIN 6.7 g/dL (6.3-8.2)
[2022-10-17 16:09] LABS: PROTHROMBIN TIME 10.4 SECONDS (9.0-12.5)
--- NOTE | 2022-10-17 16:10 | NUR ---
PATIENT IS RESTING WITH EYES CLOSED. PATIENTS O2 SATURATION REMAIN AT 89. PROVIDER NOTIFED OF VITALS.
--- NOTE | 2022-10-17 18:15 | NUR ---
PT RESTING WITH EYES CLOSED. PATIENT IS IN NO DISTRESS.
[2022-10-17 18:36] LABS: URINE BILIRUBIN - DIPSTICK Negative (NEGATIVE); URINE BLOOD DIPSTICK Small (NEGATIVE); URINE COLOR Yellow; URINE GLUCOSE - DIPSTICK 100 mg/dL (NEGATIVE); URINE KETONE Negative (NEGATIVE); URINE LEUK ESTERASE Negative (NEGATIVE); URINE NITRITE - DIPSTICK Negative (Negative); URINE PH 5.5 (4.5-8.0); URINE PROTEIN - DIPSTICK >=300 mg/dL (NEG-TRACE); URINE UROBILINOGEN - DIPSTICK 0.2 E.U./dL (0.2)
[2022-10-17 18:46] LABS: URINE WBC 0-2 WBC/hpf (0-5)
--- NOTE | 2022-10-17 18:52 | NUR ---
REPORT RECEIVED FROM MADDI BHATT AND CARE OF PT ASSUMED AT THIS TIME
--- NOTE | 2022-10-17 18:55 | NUR ---
DR. COLEMAN REQ ORDER FOR D DIMER, ORDER SET USED AND PLACED
--- NOTE | 2022-10-17 19:10 | NUR ---
PT RESTING IN BED W/ EYES CLOSED SNORING. EASILY AROUSABLE. NC IN PLACE @ 2L. RESP EVEN AND UNLABORED. NO DISTRESS NOTED AT THIS TIME. ON DAYCARE TEACHER. INFORMED PT OF PLAN OF CARE AND CONTINUED WAIT TIME AND HE VERBALIZED UNDERSTANDING. CALL LIGHT IN REACH.
--- NOTE | 2022-10-17 19:23 | NUR ---
ATTEMPTED TO CALL REPORT TO MS AND SPOKE W/ WILFRID SEGURA. UNABLE TO TAKE REPORT AT THIS TIME.
--- NOTE | 2022-10-17 20:00 | NUR ---
REPORT GIVEN TO MADDI CRAFT
--- NOTE | 2022-10-17 20:15 | NUR ---
PT TO MS VIA WHEELCHAIR IN STABLE CONDITION
--- NOTE | 2022-10-17 23:10 | NUR ---
PT ARRIVED TO UNIT AT 2009 VIA WC. ALERT AND ORIENTED. ON AT 2 LITERS. AMBULATED TO BATHROOM. EXERTIONAL SOB NOTED. ON TELE NSR. 90'S. BS 321 COVERED WITH Celect SS. PT HAD BILATERAL FOOT EDEMA. ALSO HAS RED/EXCORIATED UMBILICUS FROM PREVIUOS HERNIA REPAIR. BED LOCKED. CALL LIGHT IN REACH.
[2022-10-18] VITALS (17 sets, daily range): BP systolic 112–153; BP diastolic 62–81
[2022-10-18 05:31] LABS: HEMATOCRIT 38.4 % (39.0-50.0); HEMOGLOBIN 12.8 g/dl (14.0-18.0); MEAN CORPUSCULAR HGB 28.3 pG CALC (26.0-32.0); MEAN CORPUSCULAR HGB CONC 33.3 g/dL CAL (32.0-36.0); RED BLOOD COUNT 4.52 mill/uL (4.70-6.10); RED CELL DISTRI WIDTH 14.8 % (11.5-15.5)
[2022-10-18 05:52] LABS: BUN 35 mg/dL (8-23); BUN/CREATININE RATIO 13 (12-20 (CALC)); CARBON DIOXIDE 24 mmol/l (22-30); CHLORIDE 102 mmol/l (95-108); CREATININE 2.7 mg/dL (0.7-1.3); GFR FOR AFR.AMER. 29 ML/MIN (>=60 (CALC)); GFR OTHER RACES 24 ML/MIN (>=60 (CALC)); HDL CHOLESTEROL 45 mg/dL (39.0-59.0); MAGNESIUM 1.6 mg/dL (1.6-2.3); SODIUM 136 mmol/l (137-146); TOTAL TRIGLYCERIDES 79 mg/dl (0-149); VLDL CHOLESTROL 16 mg/dl (4-45 (CALC))
[2022-10-18 05:56] LABS: ANION GAP 16 (6-22 (CALC)); C-REACTIVE PROTEIN < 0.5 mg/dL (0-0.9); CALCULATED LDLCHOLESTEROL 33 mg/dL (62-129 (CALC)); CHOLESTEROL HDL RATIO 2.1 (<4.4 (CALC)); POTASSIUM 6.2 mmol/l (3.5-5.1); TOTAL CHOLESTEROL 94 mg/dl (0-199)
--- NOTE | 2022-10-18 08:00 | NUR ---
PT SITTIN UP ON SIDE OF BED EATING BREAKFAST. PT IS ALERT AND ORIENTED X 3, PT HAS NO C/O PAIN AT THIS TIME. PT HAS O2 @ 2 LITERS ON VIA NC. TELE ON WITH ALL LEADS ATTACHED. IV SITETO RAC CLEAN AND INTACT, SL. LUNGS WITH WHEEZING NOTED. PT AMBULATES WELL TO BATHROOM FOR TOILETING NEEDS. PT HAS +1 EDEMA TO BLE. PT HAS CALL LIGHT WITHIN REACH AND ALL SAFETY MEASURES IN PLACE AT THIS TIME.
--- NOTE | 2022-10-18 12:00 | NUR ---
PT IN BED RESTING WITH HOB, PT HAS NO C/O PAIN AT THIS TIME. PT AT BEDSIDE. PT HAS NO CHANGE IN STATUS AT THIS TIME. PT HAS CALL LIGHT WITHIN REACH AND ALL SAFETY MEASURES IN PLACE AT THIS TIME.
--- NOTE | 2022-10-18 16:00 | NUR ---
PT STATES IV TO RAC APPEARS TO BE OUT OF ARM. VERIFIED IV CATHETER IS OUT WITH TIP INTACT. NEW IV STARTED # 20 TO LAC, GOOD BLOOD RETURN AND FLUSHES WELL. SITE IS CLEAN AND FREE FROM ANY REDNESS. PT HAS CALL LIGHT WIHTIN REACH AND ALL SAFETY MEASURES IN PLACE AT THIS TIME.
--- NOTE | 2022-10-18 20:03 | NUR ---
BEDSIDE REPORT RECIEVED. PT A/OX3. RESPIRATIONS EVEN ANDF UNLABORED ON ROOM AIR. LUNG SOUNDS CLEAR BUT DIMINISHED. HEART RHYTHM NORMAL WITH TELE IN PLACE. BOWEL SOUNDS ACTIVE. #20G RAC PATENT. SKIN INTACT. PT C/O OF PAIN IN TOES, TO BE MEDICATED PER EMAR. GLUCOSE RESULTING IN 515, STAT LAB AND PROVIDER INFORMED. ORDERS OBTAIN. PT DENIES OF ANY NEEDS AT THIS TIME. PT ORIENTED TO ROOM AND CALL LIGHT SYSTEM. ALL SAFETY PRECAUTIONS ARE IN PLACE WITH CALL LIGHT IN REACH.
--- NOTE | 2022-10-18 20:44 | NUR ---
LAB AT BEDSIDE
[2022-10-19] VITALS (11 sets, daily range): BP systolic 104–134; BP diastolic 49–76
--- NOTE | 2022-10-19 00:06 | NUR ---
PT SLEEPING IN SEMI FOWLERS POSITION. RESPIRATIONS ARE EVEN AND UNLABORED ON ROOM AIR. TELE MONITORING IN PLACE. IV SITE NOTED. NO S/S OF DISTRESS. ALL SAFETY PRECAUTIONS ARE IN PLACE WITH CALL LIGHT IN REACH.
--- NOTE | 2022-10-19 01:06 | NUR ---
PT SLEEPING IN SEMI FOWLERS POSITION. RESPIRATIONS EVEN AND UNLABORED. O2 SAT 85% ON ROOM AIR. 3L NC REAPPLIED, O2 SAT 92%. PT DENIES ANY DISCOMFORTS. ALL SAFETY PRECAUTIONS ARE IN PLACE WITH CALL LIGHT IN REACH.
--- NOTE | 2022-10-19 04:14 | NUR ---
PT SITTING ON SIDE OF BED WATCHING TV. RESPIRATIONS EVEN AND UNLABORED ON 3L NC. O2 SAT 94%, O2 TO REMAIN. LUNG SOUNDS REMAINS CLEAR. #20G RAC NOTED. PT DENIES OF ANY NEEDS. ALL SAFETY PRECAUTIONS ARE IN PLACE WITH CALL LIGHT IN REACH.
[2022-10-19 05:12] LABS: BASO% 0.1 % (0-3); EOS% 0.1 % (0-8); HEMATOCRIT 36.1 % (39.0-50.0); HEMOGLOBIN 12.3 g/dl (14.0-18.0); IMMATURE GRANULOCYTES 0.7 % (0.0-5.0); LYMPH% 5.4 % (15-41); MEAN CELL VOLUME 84.9 fL CALC (80.0-100.0); MEAN CORPUSCULAR HGB 28.9 pG CALC (26.0-32.0); MEAN CORPUSCULAR HGB CONC 34.1 g/dL CAL (32.0-36.0); MONO% 2.6 % (2-13); NEUT# 12.12 thou/uL (1.82-7.42); NEUT% 91.1 % (42-76); RED BLOOD COUNT 4.25 mill/uL (4.70-6.10); RED CELL DISTRI WIDTH 14.6 % (11.5-15.5)
[2022-10-19 05:23] LABS: ALBUMIN 3.8 g/dL (3.2-5.0); BILIRUBIN, TOTAL 0.3 mg/dL (0.2-1.3); CREATININE 2.9 mg/dL (0.7-1.3); MAGNESIUM 1.7 mg/dL (1.6-2.3)
[2022-10-19 05:27] LABS: POTASSIUM 5.4 mmol/l (3.5-5.1)
--- NOTE | 2022-10-19 08:00 | NUR ---
GOT REPORT FROM UNDERGROUND ELECTRICIAN NURSE. PATIENT ASSESSED, AOX3, PATIENT HAS NO COMPLAINTS AT THIS TIME. PATIENT IS EATING BREAKFAST SITTING ON THE SIDE OF THE BED. NO OXYGEN ON AT THIS TIME. VSS. URINAL EMPTIED. ADVISED PATIENT TO CALL IF NEEDING ANYTHING. PATIENT VERBALIZED UNDERSTANDING. CALL LIGHT AND BEDISDE TABLE IS WITH IN REACH OF PATIENT.
--- NOTE | 2022-10-19 08:00 | NUR ---
MD MADE AWARE THAT PATIENT IS TRIGGERING THE SEPSIS ALERT, BUT PER MD NO NEED FOR SEPSIS ALERT TO BE CALL AFTER HE REVIEWED CHART AND SEEN PATIENT.
--- NOTE | 2022-10-19 11:26 | NUR ---
Preliminary blood culture results of 1/4 bottles growing gram positive cocci called to Lashon Castillo APRN. Probable contaminant, no new orders.
--- NOTE | 2022-10-19 11:36 | NUR ---
MD MADE AWARE OF PATIENT BLOOD SUGAR. STATES THAT HE IS GOING TO MAKE SOME CHANGES TO HIS MEDICATIONS. WILL AWAIT THE CHANGES BEFORE THE ADMIN OF THE CURRENT SCHEDULE MEDICATION
--- NOTE | 2022-10-19 12:00 | NUR ---
PATIENT IS SITTING ON THE SIDE OF BED EATING. PATIENT HAS NO COMPLAINTS AT THIS TIME. CALL LIGHT AND BEDSIDE TABLE WITH IN REACH. ADVISED TO CALL IF NEEDING ANYTHING
--- NOTE | 2022-10-19 13:16 | NUR ---
0800 AND AGAIN AT 1200 MD MADE AWARE THAT PATIENT IS TRIGGERING THE SEPSIS ALERT, BUT PER MD NO NEED FOR SEPSIS ALERT TO BE CALL AFTER HE REVIEWED CHART AND SEEN PATIENT.
--- NOTE | 2022-10-19 16:00 | NUR ---
PATIENT ON SIDE OF BED TALKING WITH . PATIENT HAS SXS OF DISTRESS, PATIENT DENIES NEEDING ANYTHING. PATIENT ADVISED TO CALL ME IF NEEDING ANYTHING. PATIENT VERBALIZED UNDERSTANDING.
--- NOTE | 2022-10-19 16:25 | NUR ---
patient glucose level is 458, nurse aware.
--- NOTE | 2022-10-19 23:04 | NUR ---
received bedside shift report at start of shift. pt sitting on edge of bed looking at his phone. alert and oriented. no sob noted. on tele sr. top bed rails up. bed is locked. call light in reach
[2022-10-20] VITALS (8 sets, daily range): BP systolic 117–138; BP diastolic 61–88
[2022-10-20 05:20] LABS: HEMATOCRIT 38.4 % (39.0-50.0); HEMOGLOBIN 13.2 g/dl (14.0-18.0); IMMATURE GRANULOCYTES 0.9 % (0.0-5.0); LYMPH% 5.4 % (15-41); MEAN CELL VOLUME 85.7 fL CALC (80.0-100.0); MEAN CORPUSCULAR HGB 29.5 pG CALC (26.0-32.0); MEAN CORPUSCULAR HGB CONC 34.4 g/dL CAL (32.0-36.0); MONO% 2.5 % (2-13); NEUT# 10.93 thou/uL (1.82-7.42); NEUT% 91.2 % (42-76); RED BLOOD COUNT 4.48 mill/uL (4.70-6.10); RED CELL DISTRI WIDTH 14.6 % (11.5-15.5)
[2022-10-20 05:34] LABS: ALBUMIN 3.8 g/dL (3.2-5.0); BILIRUBIN, TOTAL 0.4 mg/dL (0.2-1.3); CREATININE 2.9 mg/dL (0.7-1.3); MAGNESIUM 1.9 mg/dL (1.6-2.3); TOTAL PROTEIN 6.6 g/dL (6.3-8.2)
[2022-10-20 05:37] LABS: POTASSIUM 5.5 mmol/l (3.5-5.1)
--- NOTE | 2022-10-20 07:31 | NUR ---
PERFROMED BEDSIDE REPORT WITH TABLET MACHINE OPERATOR NURSE. PT NOTED LAYING SEMI FOWELRS IN BED, A/OX3. DENIES ANY PAIN AT THIS TIME. NO S/S OF DISTRESS. INCENTIVE SPIROMETER AT BEDSIDE ENCOURAGED PT TO USE. EDUCATED PT ON PLAN OF CARE FOR TODAY. CALL LIGHT WITHIN REACH AND SAFETY PRECAUSTIONS IN PLACE.
[2022-10-20 16:23] LABS: CREATININE 2.8 mg/dL (0.7-1.3)
--- NOTE | 2022-10-20 16:45 | NUR ---
PT IS SITTING UP ON SIDE OF BED EATING DINNER. AT BEDSIDE. PT DENIES ANY PAIN, NO S/S OF DISTRESS. CALL LIGHT WITHIN REACH AND SAFETY PRECAUTIONS IN PLACE.
--- NOTE | 2022-10-20 19:25 | NUR ---
PATIENT RESTING IN BED-AWAKE ALERT AND ORIOENTEDX3. PATIENT O2 SAT ON RA IS 88%. O2 APPLIED AND RECHECKED AT 92% ON NASAL CANNULA AT 2LPM. PATIENT WITH DIMINISHED BS GANGA BUT CLEAR. VOIDING QS CLEAR YELLOW URINE IN URINAL(1100CC). INSTRUCTED PATIENT TO SAVE URINE IN URINAL FOR ACCURATE I&O. VERBALIZES UNDERSTANDING. IV SITE TO RIGHT HAND INTACT AND HEALTHY AT THIS TIME-SALINE LOCK. TELE MONITOR IN PLACE AND READING ST-LOW 100'S AT THIS TIME. GLUCOSE MONITOR IS 496 AT THIS TIME-WILL RECHECK AFTER 1999. SAFETY PRECAUTIONS REINFORCED. CALL LIGHT IN REACH. WILL CONT TO MONITOR.
--- NOTE | 2022-10-20 19:31 | NUR ---
patient blood sugar was 496, will recheck at 1999, nurse aware..jozef chandra
--- NOTE | 2022-10-20 21:00 | NUR ---
BLOOD SUGAR WAS 527-DR. GRANADOS WAS CALLED AND NEW ORDERS OBTAINED. PATIENT WAS MEDICATED WITH HUMULIN R-6UNITS IVP ORDERED AND HUMALOG 14UNITS PER HUMALOG HIGH DOSE SLIDING SCALE COVERAGE. IVF HUNG AND INFUSING ORDERED. PATIENT RESTING IN BED. CALL LIGHT IN REACH. WILL CONT TO MONITOR.
--- NOTE | 2022-10-20 23:00 | NUR ---
PATIENT SITTING UP ON THE SIDE OF THE BED. GLUCOSE IS STILL ELEVATED AT 457. PROVIDED WITH DIET [place]. NS INFUSING ORDERED. CALL LIGHT IN REACH. WILL CONT TO MONITOR.
[2022-10-21 00:09] VITALS: BP 117/66
--- NOTE | 2022-10-21 00:20 | NUR ---
PATIENT POSITIONED ON RIGHT SIDE. EYES ARE CLOSED AND RESPS ARE EVEN AND UNLABORED. O2 VIA NASAL CANNULA IN PLACE. TELE MONITOR IN PLACE. IVF FINISHED. CALL LIGHT IN REACH. WILL CONT TO MONITOR.
--- NOTE | 2022-10-21 02:55 | NUR ---
PATIENT POSITIONED ON LEFT SIDE. EYES ARE CLOSED AND O2 VIA NASAL CANNULA IN PLACE AT 2LPM. TELE MONITOR IN PLACE. CALL LIGHT IN REACH. WILL CONT TO MONITOR.
[2022-10-21 04:01] VITALS: BP 130/70
--- NOTE | 2022-10-21 04:36 | NUR ---
PATIENT IS RESTLESS-UP AMBULATING IN THE SU-STEADY GAIT. TELE MONITOR IN PLACE. SALINE LOCK TO RIGHT HAND INTACT. O2 SAT WITH O2 OFF AND AMBULATING WAS 91%. BACK IN BED AT THIS TIME. CALL LIGHT IN REACH. [facility]
[2022-10-21 05:15] VITALS: BP 130/70
[2022-10-21 05:28] LABS: HEMATOCRIT 38.9 % (39.0-50.0); HEMOGLOBIN 13.1 g/dl (14.0-18.0); MEAN CELL VOLUME 86.8 fL CALC (80.0-100.0); MEAN CORPUSCULAR HGB 29.2 pG CALC (26.0-32.0); MEAN CORPUSCULAR HGB CONC 33.7 g/dL CAL (32.0-36.0); RED BLOOD COUNT 4.48 mill/uL (4.70-6.10); RED CELL DISTRI WIDTH 14.6 % (11.5-15.5)
[2022-10-21 05:53] LABS: ALBUMIN 3.6 g/dL (3.2-5.0); BILIRUBIN, TOTAL 0.4 mg/dL (0.2-1.3); CREATININE 2.7 mg/dL (0.7-1.3); TOTAL PROTEIN 5.9 g/dL (6.3-8.2)
--- NOTE | 2022-10-21 06:01 | NUR ---
PATIENT RESTING IN BED-POSITIONED ON RIGHT SIDE. EYES ARE CLOSED AND RESPS ARE EVEN AND UNLABORED. TELE MONITOR IN PLACE WITH LAST READING SR-90'S. O2 VIA NASAL CANNULA IN PLACE. GLUCOSE ON LABS WAS 275. CALL LIGHT IN REACH. WILL CONT TO MONITOR.
--- NOTE | 2022-10-21 08:16 | NUR ---
RECEIVED BEDSIDE REPORT FROM MADDI GRIFFIN. PT RESTING IN BED WITH EYES CLOSED. ALL SAFETY MEASURES IN PLACE. VSS. NO NEEDS AT THIS TIME.
[2022-10-21 11:29] VITALS: BP 140/76
[2022-10-21] MEDS ORDERED: CYMBALTA60 MG PO ×2 (13:53→14:00)
[2022-10-21] MEDS ORDERED: PREDNISONE10 MG PO (13:59)
--- NOTE | 2022-10-21 14:47 | NUR ---
Discharge instructions given. Patient verbalizes understanding of same. Discharged in stable condition via Wheelchair to Home with family. All belongings sent with pt.
== END 2022-10-21 14:26 | disposition home or self-care (01) | DRG 291 ==
LOC: ED 15:11 → ED-I 16:42 → ED 18:59 → MS2 19:00
PROVIDERS: Nurse Practitioner; Nurse Practitioner Family; ADMIT Student in an Organized Health Care Education/Training Program; ATTEND Student in an Organized Health Care Education/Training Program
DX: I13.0 Hypertensive heart and chronic kidney disease with heart failure and stage 1 through stage 4 chronic kidney disease, or unspecified chronic kidney disease (principal); I50.33 Acute on chronic diastolic (congestive) heart failure; J44.1 Chronic obstructive pulmonary disease with (acute) exacerbation; R09.02 Hypoxemia; E87.5 Hyperkalemia; E11.65 Type 2 diabetes mellitus with hyperglycemia; E11.22 Type 2 diabetes mellitus with diabetic chronic kidney disease; N18.9 Chronic kidney disease, unspecified; E78.5 Hyperlipidemia, unspecified; E11.42 Type 2 diabetes mellitus with diabetic polyneuropathy; F17.210 Nicotine dependence, cigarettes, uncomplicated; Z79.4 Long term (current) use of insulin
CPT/HCPCS: J1650

== ENCOUNTER 2023-10-12 19:26 | Emergency (ER) | payer SELFPAY ==
[~2023-10-12] VITALS: Ht 185.4 cm; Wt 118.0 kg
[~2023-10-12 19:26] MED LIST changes: +AMLODIPINE BESYL5 MG PO; +CEFDINIR300 MG PO; +CYMBALTA60 MG PO; +LASIX 40 MG TAB40 MG PO; +PREDNISONE10 MG PO
[2023-10-12] MEDS ORDERED: methylPREDNISolone SODIUM SUCC 125 MG/2 ML SDV IV ONE (19:45)
[2023-10-12] MEDS ORDERED: IPRATROPIUM-Albuterol 0.5MG-2.5MG/3 ML NEB ONE (19:45)
[2023-10-12] MEDS ORDERED: FUROSEMIDE 40 MG/4 ML SDV IV ONE (19:50)
[2023-10-12 20:01] VITALS: BP 154/93
[2023-10-12 20:03] LABS: BASO% 0.4 % (0-3); EOS% 2.6 % (0-8); HEMATOCRIT 41.1 % (39.0-50.0); HEMOGLOBIN 13.7 g/dl (14.0-18.0); IMMATURE GRANULOCYTES 0.5 % (0.0-5.0); MEAN CELL VOLUME 83.7 fL CALC (80.0-100.0); MEAN CORPUSCULAR HGB 27.9 pG CALC (26.0-32.0); MEAN CORPUSCULAR HGB CONC 33.3 g/dL CAL (32.0-36.0); MONO% 6.1 % (2-13); NEUT# 5.6 thou/uL (1.82-7.42); NEUT% 71.4 % (42-76); RED BLOOD COUNT 4.91 mill/uL (4.70-6.10); RED CELL DISTRI WIDTH 14.8 % (11.5-15.5)
[2023-10-12 20:12] LABS: ALBUMIN 3.9 g/dL (3.2-5.0); BILIRUBIN, TOTAL 0.4 mg/dL (0.2-1.3); MAGNESIUM 1.8 mg/dL (1.6-2.3); TOTAL PROTEIN 6.5 g/dL (6.3-8.2)
[2023-10-12 20:30] VITALS: BP 137/81
[2023-10-12] MEDS ORDERED: OXYMETAZOLINE HCL 15 ML/BTL ONE (20:30)
[2023-10-12] MEDS ORDERED: INSULIN REGULAR (HUMAN) 100 UNIT/ML INJ SC ONE (20:45)
[2023-10-12 21:00] VITALS: BP 149/72
[2023-10-12 21:24] LABS: URINE BILIRUBIN - DIPSTICK Negative (NEGATIVE); URINE BLOOD DIPSTICK Small (NEGATIVE); URINE GLUCOSE - DIPSTICK 250 mg/dL (NEGATIVE); URINE KETONE Negative (NEGATIVE); URINE LEUK ESTERASE Negative (NEGATIVE); URINE NITRITE - DIPSTICK Negative (Negative); URINE PH 5.5 (4.5-8.0); URINE PROTEIN - DIPSTICK >=300 mg/dL (NEG-TRACE); URINE UROBILINOGEN - DIPSTICK 0.2 E.U./dL (0.2)
[2023-10-12 21:25] LABS: URINE COLOR Yellow
[2023-10-12 21:31] VITALS: BP 144/84
[2023-10-12 21:32] LABS: URINE RBC 0-2 RBC/hpf (0-5)
[2023-10-12] MEDS ORDERED: LIPITOR40 M1 PO (21:38)
[2023-10-12] MEDS ORDERED: AMLODIPINE BESYL5 MG PO (21:38)
[2023-10-12] MEDS ORDERED: LASIX 40 MG TAB40 MG PO (21:38)
[2023-10-12] MEDS ORDERED: NOVOLOG MIX SC (21:38)
[2023-10-12 22:08] VITALS: BP 144/84
== END 2023-10-12 22:14 | disposition home or self-care (01) | DRG 638 ==
LOC: ED 19:26
PROVIDERS: Family Medicine
DX: E11.65 Type 2 diabetes mellitus with hyperglycemia (principal); I13.0 Hypertensive heart and chronic kidney disease with heart failure and stage 1 through stage 4 chronic kidney disease, or unspecified chronic kidney disease; J44.1 Chronic obstructive pulmonary disease with (acute) exacerbation; E11.22 Type 2 diabetes mellitus with diabetic chronic kidney disease; I50.9 Heart failure, unspecified; N18.9 Chronic kidney disease, unspecified; E78.00 Pure hypercholesterolemia, unspecified; F41.9 Anxiety disorder, unspecified; F17.200 Nicotine dependence, unspecified, uncomplicated; T46.5X6A Underdosing of other antihypertensive drugs, initial encounter; T46.6X6A Underdosing of antihyperlipidemic and antiarteriosclerotic drugs, initial encounter; Z91.128 Patient's intentional underdosing of medication regimen for other reason; Z79.4 Long term (current) use of insulin

== ENCOUNTER 2023-10-13 12:23 | Emergency (ER) | payer SELFPAY ==
[2023-10-13] VITALS (10 sets, daily range): BP systolic 115–165; BP diastolic 75–109
[~2023-10-13] VITALS: Ht 185.4 cm; Wt 117.0 kg
[~2023-10-13 12:23] MED LIST changes: +NOVOLOG MIX SC
[2023-10-13] MEDS ORDERED: SODIUM CHLORIDE 0.9% 1,000 ML IV ONE (13:15)
[2023-10-13 13:28] LABS: BASO% 0.1 % (0-3); EOS% 0.1 % (0-8); IMMATURE GRANULOCYTES 0.5 % (0.0-5.0); MEAN CELL VOLUME 83.3 fL CALC (80.0-100.0); MEAN CORPUSCULAR HGB 28.5 pG CALC (26.0-32.0); MEAN CORPUSCULAR HGB CONC 34.2 g/dL CAL (32.0-36.0); MONO% 4.6 % (2-13); NEUT# 10.44 thou/uL (1.82-7.42); NEUT% 86.7 % (42-76); RED BLOOD COUNT 4.56 mill/uL (4.70-6.10); RED CELL DISTRI WIDTH 14.5 % (11.5-15.5)
[2023-10-13 13:43] LABS: ALBUMIN 3.7 g/dL (3.2-5.0); BILIRUBIN, TOTAL 0.5 mg/dL (0.2-1.3); CREATININE 3.4 mg/dL (0.7-1.3); TOTAL PROTEIN 6.1 g/dL (6.3-8.2)
[2023-10-13 13:50] LABS: POTASSIUM 5.3 mmol/l (3.5-5.1)
[2023-10-13] MEDS ORDERED: INSULIN REGULAR (HUMAN) 100 UNIT/ML INJ IV ONE (13:55)
== END 2023-10-13 15:30 | disposition home or self-care (01) | DRG 638 ==
LOC: ED 12:23
PROVIDERS: Family Medicine
DX: E11.65 Type 2 diabetes mellitus with hyperglycemia (principal); I13.0 Hypertensive heart and chronic kidney disease with heart failure and stage 1 through stage 4 chronic kidney disease, or unspecified chronic kidney disease; E11.22 Type 2 diabetes mellitus with diabetic chronic kidney disease; N18.9 Chronic kidney disease, unspecified; I50.9 Heart failure, unspecified; J44.9 Chronic obstructive pulmonary disease, unspecified; F41.9 Anxiety disorder, unspecified; E78.00 Pure hypercholesterolemia, unspecified; F17.200 Nicotine dependence, unspecified, uncomplicated; Z79.84 Long term (current) use of oral hypoglycemic drugs

== ENCOUNTER 2023-11-11 14:12 | Inpatient (IN) | payer SELFPAY ==
[~2023-11-11] VITALS: Ht 185.4 cm; Wt 128.6 kg
[2023-11-11] VITALS (19 sets, daily range): BP systolic 124–173; BP diastolic 67–116
[2023-11-11] MEDS ORDERED: IPRATROPIUM-Albuterol 0.5MG-2.5MG/3 ML NEB ONE (14:20)
[2023-11-11] MEDS ORDERED: methylPREDNISolone SODIUM SUCC 125 MG/2 ML SDV IV ONE (14:20)
[2023-11-11] MEDS ORDERED: SODIUM CHLORIDE 0.9% 1,000 ML IV ONE (14:20)
[2023-11-11] MEDS ORDERED: INSULIN REGULAR (HUMAN) 100 UNIT/ML INJ IV ONE (14:25)
[2023-11-11 14:44] LABS: BASO% 0.3 % (0-3); HEMATOCRIT 38.2 % (39.0-50.0); HEMOGLOBIN 13.2 g/dl (14.0-18.0); IMMATURE GRANULOCYTES 0.6 % (0.0-5.0); LYMPH% 18.4 % (15-41); MEAN CELL VOLUME 82.3 fL CALC (80.0-100.0); MEAN CORPUSCULAR HGB 28.4 pG CALC (26.0-32.0); MEAN CORPUSCULAR HGB CONC 34.6 g/dL CAL (32.0-36.0); MONO% 6.1 % (2-13); NEUT# 5.56 thou/uL (1.82-7.42); NEUT% 71.6 % (42-76); RED BLOOD COUNT 4.64 mill/uL (4.70-6.10); RED CELL DISTRI WIDTH 15.3 % (11.5-15.5)
[2023-11-11 14:55] LABS: ALKALINE PHOSPHATASE 125 u/l (38-126); ANION GAP 9 (6-22 (CALC)); BILIRUBIN, TOTAL 0.4 mg/dL (0.2-1.3); BUN 30 mg/dL (8-23); BUN/CREATININE RATIO 11 (12-20 (CALC)); CARBON DIOXIDE 28 mmol/l (22-30); CHLORIDE 105 mmol/l (95-108); CREATININE 2.7 mg/dL (0.7-1.3); ESTIMATED GFR 26 ML/MIN (>=90 (CALC)); POTASSIUM 4.8 mmol/l (3.5-5.1); SGOT/AST 30 u/l (19-48); SODIUM 136 mmol/l (137-146); TOTAL PROTEIN 6.6 g/dL (6.3-8.2)
[2023-11-11] MEDS ORDERED: AZITHROMYCIN 500 MG in SODIUM CHLORIDE 0.9% 250 ML IV ONE (15:35)
[2023-11-11] MEDS ORDERED: ACETAMINOPHEN 325 MG/TAB PO PRN (16:30)
[2023-11-11] MEDS ORDERED: MAGNESIUM HYDROXIDE 30 ML UDC PO PRN (16:30)
[2023-11-11] MEDS ORDERED: INSULIN LISPRO 100 UNITS/ML ML SC SCH (17:00)
[2023-11-11] MEDS ORDERED: IPRATROPIUM-Albuterol 0.5MG-2.5MG/3 ML NEB SCH (19:00)
[2023-11-11] MEDS ORDERED: methylPREDNISolone Sod Succ 40 MG/ML SDV IV SCH (21:00)
[2023-11-11] MEDS ORDERED: ATORVASTATIN CALCIUM 40 MG/TAB PO SCH (21:00)
[2023-11-11] MEDS ORDERED: INSULIN NPH ISOPHANE & REG (HU 100 UNITS/ML SC SCH (21:00)
[2023-11-11] MEDS ORDERED: FUROSEMIDE 40 MG/TAB PO SCH (21:24)
[2023-11-11] MEDS ORDERED: Heparin SODIUM (Porcine) 5,000 UNITS/ML SDV SC SCH (22:00)
[2023-11-12 05:14] LABS: BASO% 0.1 % (0-3); EOS% 0.1 % (0-8); HEMATOCRIT 37.1 % (39.0-50.0); HEMOGLOBIN 12.7 g/dl (14.0-18.0); IMMATURE GRANULOCYTES 0.7 % (0.0-5.0); LYMPH% 5.1 % (15-41); MEAN CELL VOLUME 83.6 fL CALC (80.0-100.0); MEAN CORPUSCULAR HGB 28.6 pG CALC (26.0-32.0); MEAN CORPUSCULAR HGB CONC 34.2 g/dL CAL (32.0-36.0); MONO% 0.8 % (2-13); NEUT# 10.11 thou/uL (1.82-7.42); NEUT% 93.2 % (42-76); RED BLOOD COUNT 4.44 mill/uL (4.70-6.10); RED CELL DISTRI WIDTH 14.9 % (11.5-15.5)
[2023-11-12 05:15] VITALS: BP 134/69
[2023-11-12 05:35] LABS: ALBUMIN 3.7 g/dL (3.2-5.0); BILIRUBIN, TOTAL 0.4 mg/dL (0.2-1.3); CHOLESTEROL HDL RATIO 2.4 (<4.4 (CALC)); CREATININE 2.8 mg/dL (0.7-1.3); MAGNESIUM 1.6 mg/dL (1.6-2.3); TOTAL PROTEIN 5.8 g/dL (6.3-8.2)
[2023-11-12 05:47] LABS: POTASSIUM 5.2 mmol/l (3.5-5.1)
[2023-11-12] MEDS ORDERED: DEXTROSE 250 ML IV PRN (06:20)
[2023-11-12 07:02] VITALS: BP 139/74
[2023-11-12] MEDS ORDERED: ASPIRIN 81 MG/TAB PO SCH (09:00)
[2023-11-12] MEDS ORDERED: amLODIPine BESYLATE 5 MG/TAB PO SCH (09:00)
[2023-11-12] MEDS ORDERED: INSULIN DETEMIR 100 UNITS/ML SC SCH (09:00)
[2023-11-12] MEDS ORDERED: DULOXETINE HCl 30 MG/CAP PO SCH (09:00)
[2023-11-12] MEDS ORDERED: INSULIN NPH ISOPHANE & REG (HU 100 UNITS/ML SC SCH ×2 (09:00→21:00)
[2023-11-12 10:45] VITALS: BP 123/69
[2023-11-12] MEDS ORDERED: IPRATROPIU0.5 MG/3 M IN (10:49)
[2023-11-12] MEDS ORDERED: LASIX 40 MG TAB40 MG PO (10:49)
[2023-11-12] MEDS ORDERED: CYMBALTA60 MG PO (10:49)
[2023-11-12] MEDS ORDERED: AMLODIPINE BESYL5 MG PO (10:49)
[2023-11-12] MEDS ORDERED: VENTOLIN HFA108 MCG PO (10:49)
[2023-11-12] MEDS ORDERED: GABAPENTIN100 MG PO (10:49)
[2023-11-12] MEDS ORDERED: ASPIRIN ADULT L81 M2 PO (10:49)
[2023-11-12] MEDS ORDERED: LIPITOR40 M1 PO (10:49)
[2023-11-12] MEDS ORDERED: DOXYCYCLINE100 MG PO (10:50)
[2023-11-12] MEDS ORDERED: HUMULIN 70/30 SC (10:50)
[2023-11-12] MEDS ORDERED: AZITHROMYCIN 500 MG in SODIUM CHLORIDE 0.9% 250 ML IV SCH (18:00)
== END 2023-11-12 12:21 | disposition home or self-care (01) | DRG 190 ==
LOC: ED 14:12 → ED-I 15:27 → ED 15:45 → MS2 15:46
PROVIDERS: Nurse Practitioner; ADMIT Student in an Organized Health Care Education/Training Program; ATTEND Student in an Organized Health Care Education/Training Program
DX: J44.1 Chronic obstructive pulmonary disease with (acute) exacerbation (principal); J96.01 Acute respiratory failure with hypoxia; J96.02 Acute respiratory failure with hypercapnia; I13.0 Hypertensive heart and chronic kidney disease with heart failure and stage 1 through stage 4 chronic kidney disease, or unspecified chronic kidney disease; E11.65 Type 2 diabetes mellitus with hyperglycemia; E11.22 Type 2 diabetes mellitus with diabetic chronic kidney disease; N18.9 Chronic kidney disease, unspecified; I50.9 Heart failure, unspecified; E87.5 Hyperkalemia; E78.5 Hyperlipidemia, unspecified; F17.200 Nicotine dependence, unspecified, uncomplicated; Z91.190 Patient's noncompliance with other medical treatment and regimen due to financial hardship; Z79.4 Long term (current) use of insulin; Z20.822 Contact with and (suspected) exposure to COVID-19

== ENCOUNTER 2024-02-20 08:35 | Inpatient (IN) | payer SELFPAY ==
[2024-02-20] VITALS (12 sets, daily range): BP systolic 137–163; BP diastolic 71–99
[~2024-02-20] VITALS: Ht 185.4 cm; Wt 128.8 kg
[~2024-02-20 08:35] MED LIST changes: +DOXYCYCLINE100 MG PO; +VIAGRA50 MG PO; +ZITHROMAX250 MG PO
--- NOTE | 2024-02-20 08:50 | NUR ---
PATIENT TO ROOM 3, UNDRESSED INTO A GOWN, PLACED ON MONITOR. PATIENT STATES INCREASE IN [place] AND PASSING OUT OVER THE LAST MONTH. STATES TODAY IS WORSE. TRIAGE COMPLETED AT BEDSIDE. AWAITING EVAL.
--- NOTE | 2024-02-20 09:05 | NUR ---
PATIENT O2 SAT IS 85-89%/ AWAITING ABG PRIO TO APPLYING O2
[2024-02-20 09:22] LABS: BASO% 0.3 % (0-3); EOS% 3.3 % (0-8); HEMATOCRIT 38.4 % (39.0-50.0); HEMOGLOBIN 12.7 g/dl (14.0-18.0); IMMATURE GRANULOCYTES 0.4 % (0.0-5.0); LYMPH% 16.3 % (15-41); MEAN CELL VOLUME 87.9 fL CALC (80.0-100.0); MEAN CORPUSCULAR HGB 29.1 pG CALC (26.0-32.0); MEAN CORPUSCULAR HGB CONC 33.1 g/dL CAL (32.0-36.0); NEUT# 5.72 thou/uL (1.82-7.42); NEUT% 73.7 % (42-76); RED BLOOD COUNT 4.37 mill/uL (4.70-6.10)
[2024-02-20 09:31] LABS: ALBUMIN 3.9 g/dL (3.2-5.0); CREATININE 2.4 mg/dL (0.7-1.3); POTASSIUM 4.7 mmol/l (3.5-5.1); TOTAL PROTEIN 6.2 g/dL (6.3-8.2)
[2024-02-20 09:32] LABS: BILIRUBIN, TOTAL 0.6 mg/dL (0.2-1.3)
[2024-02-20] MEDS ORDERED: methylPREDNISolone SODIUM SUCC 125 MG/2 ML SDV IV ONE ×2 (09:55→10:00)
[2024-02-20] MEDS ORDERED: IPRATROPIUM-Albuterol 0.5MG-2.5MG/3 ML NEB ONE (10:00)
[2024-02-20] MEDS ORDERED: AZITHROMYCIN 500 MG in SODIUM CHLORIDE 0.9% 250 ML IV ONE (10:30)
[2024-02-20] MEDS ORDERED: cefTRIAXone SODIUM 2 GM in SODIUM CHLORIDE 0.9% 100 ML IV ONE (10:30)
[2024-02-20] MEDS ORDERED: FUROSEMIDE 40 MG/4 ML SDV IV ONE (10:35)
[2024-02-20] MEDS ORDERED: AZITHROMYCIN 500 MG/VIAL SDV IV ONE (10:38)
[2024-02-20] MEDS ORDERED: MAGNESIUM HYDROXIDE 30 ML UDC PO PRN (10:40)
[2024-02-20] MEDS ORDERED: ACETAMINOPHEN 325 MG/TAB PO PRN (10:40)
[2024-02-20] MEDS ORDERED: IPRATROPIUM-Albuterol 0.5MG-2.5MG/3 ML NEB PRN (10:40)
[2024-02-20] MEDS ORDERED: FUROSEMIDE 40 MG/4 ML SDV IV SCH (11:00)
[2024-02-20] MEDS ORDERED: INSULIN LISPRO 100 UNITS/ML ML SC SCH ×3 (11:00→22:30)
--- NOTE | 2024-02-20 12:00 | NUR ---
PT SITTING UP ON THE SIDE OF THE STRETCHER, PT A&O X3, RESP. EVEN AND UNLABORED, PT DENIES ANY NEEDS AT THIS TIME, PT REMINDED TO CALL FOR ASSISTANCE, PT VERBALIZED UNDERSTANDING, CALL WELLER WITHIN REACH
[2024-02-20] MEDS ORDERED: Heparin SODIUM (Porcine) 5,000 UNITS/ML SDV SC SCH (14:00)
--- NOTE | 2024-02-20 15:10 | NUR ---
RACQUEL PLASMA PROCESSING CENTRIFUGE OPERATOR AT BEDSIDE DISCUSSING PLAN OF CARE
--- NOTE | 2024-02-20 16:00 | NUR ---
PT LAYING IN BED RESTING WITH EYES CLOSED, RESP. EVEN AND UNLABORED, NO SIGNS OF DISTRESS, CALL WELLER WITHIN REACH
[2024-02-20] MEDS ORDERED: INSULIN NPH ISOPHANE & REG (HU 100 UNITS/ML SC SCH (17:00)
--- NOTE | 2024-02-20 19:20 | NUR ---
NOTIFIED FLOORS BUFFER PROVIDER OF PATIENT BS OF 505. RECEIVED NEW ORDER. SEE EMAR.
--- NOTE | 2024-02-20 19:29 | NUR ---
Nurse was notified about patient blood sugar being high at 505.
--- NOTE | 2024-02-20 19:30 | NUR ---
Pt laying in bed on his side, lethargic. Pt arouses to verbal command and able to make needs known. Pt is breathing even and non-labored on 3L n/c. Pt states he is pain free at this time. No distress noted. Safety measures in place. Bed in low position with call light within reach.
--- NOTE | 2024-02-20 20:48 | NUR ---
INFORMED INSULATION FOREMAN PROVIDER OF PATIENTS OXYGEN SATURATIONS. NEW ORDER RECEIVED FOR CONTINUOUS PULSE OX.
[2024-02-20] MEDS ORDERED: methylPREDNISolone Sod Succ 40 MG/ML SDV IV SCH (21:00)
[2024-02-20] MEDS ORDERED: ATORVASTATIN CALCIUM 40 MG/TAB PO SCH (21:00)
[2024-02-20] MEDS ORDERED: GABAPENTIN 100 MG/CAP PO SCH (21:00)
--- NOTE | 2024-02-20 21:19 | NUR ---
SPOKE WITH YARN TEXTURE MACHINE OPERATOR PROVIDER AND INFORMED OF PATIENTS REFUSAL TO WEAR APPROPRIATE OXYGEN DEVICE WHICH THEN DECREASES HIS SATS. PATIENT FREQUENTLY EDUCATED ON IMPORTANCE OF WEARING OXYGEN. STILL REFUSES TO KEEP ON CONSISTENTLY.
--- NOTE | 2024-02-20 22:02 | NUR ---
Glucose was re-checked and nurse was notified about patient glucose being high at 439.
--- NOTE | 2024-02-20 22:11 | NUR ---
INFORMED PROVIDER OF PATIENTS RECHECKED BS OF 439. NEW ORDER RECEIVED TO GIVE AN ADDITIONAL 10 UNITS OF HUMALOG.
--- NOTE | 2024-02-20 23:51 | NUR ---
Pt is laying on his side with his eyes closed. No distress noted. Breathing remains even and non-labored on 3L n/c. No report of pain or discomfort. Bed in lowest position for safety measures with call light within reach.
[2024-02-21 03:51] VITALS: BP 137/73
--- NOTE | 2024-02-21 04:13 | NUR ---
Patient refused to put on oxygen and was informed his oxygen was low at 83 and what could happen.
--- NOTE | 2024-02-21 04:22 | NUR ---
Pt is sitting up at the edge of the bed. Non-compliant with O2, keeps taking off n/c causing sats to drop below 90%. Educated pt on the importance of wearing his oxygen at all times. Pt states understanding.
--- NOTE | 2024-02-21 04:34 | NUR ---
CALLED RT EARLIER AND ASKED IF HE COULD SPEAK WITH PATIENT AND EDUCATE MORE ON THE IMPORTANCE OF KEEPING HIS OXYGEN ON. PATIENT DESATS QUICKLY WITHOUT IT.
[2024-02-21 06:53] VITALS: BP 126/65
[2024-02-21 06:55] LABS: BASO% 0.1 % (0-3); HEMATOCRIT 40.8 % (39.0-50.0); HEMOGLOBIN 13.1 g/dl (14.0-18.0); IMMATURE GRANULOCYTES 1.3 % (0.0-5.0); LYMPH% 4.8 % (15-41); MEAN CELL VOLUME 89.9 fL CALC (80.0-100.0); MEAN CORPUSCULAR HGB 28.9 pG CALC (26.0-32.0); MEAN CORPUSCULAR HGB CONC 32.1 g/dL CAL (32.0-36.0); MONO% 2.7 % (2-13); NEUT# 9.65 thou/uL (1.82-7.42); NEUT% 91.1 % (42-76); RED BLOOD COUNT 4.54 mill/uL (4.70-6.10); RED CELL DISTRI WIDTH 15.8 % (11.5-15.5)
[2024-02-21 07:07] LABS: ALBUMIN 3.9 g/dL (3.2-5.0); BILIRUBIN, TOTAL 0.5 mg/dL (0.2-1.3); CREATININE 2.7 mg/dL (0.7-1.3); MAGNESIUM 2.1 mg/dL (1.6-2.3); TOTAL PROTEIN 6.1 g/dL (6.3-8.2)
[2024-02-21 07:14] LABS: POTASSIUM 6.2 mmol/l (3.5-5.1)
--- NOTE | 2024-02-21 07:28 | NUR ---
PT IS AOX4, RESPIRATIONS ARE EVEN AND UNLABORED ON 3L O2, LUNGS AT BILATERAL BASES DIM, LEFT LOWER LUNG MORE DIM THAN RIGHT, BILATERAL UPPER LUNGS ALSO DIM, BOWEL SOUNDS ACTIVE, PEDAL PULSES PALPABLE TO TOUCH WITH 1+ PITTING EDEMA, PT DENIES PAIN AT THIS TIME. EDUCATED PT ON KEEPING THE NC ON TO MAINTAIN AN O2 ABOVE 90%.
[2024-02-21] MEDS ORDERED: SODIUM POLYSTYRENE SULFONATE 15 G/BTL POWDER PO SCH (08:30)
[2024-02-21] MEDS ORDERED: amLODIPine BESYLATE 5 MG/TAB PO SCH (09:00)
[2024-02-21] MEDS ORDERED: ASPIRIN EC 81 MG/TAB PO SCH (09:00)
[2024-02-21] MEDS ORDERED: FUROSEMIDE 40 MG/TAB PO SCH (09:00)
--- NOTE | 2024-02-21 09:50 | NUR ---
Consult was made for pt to talk with .
[2024-02-21] MEDS ORDERED: SODIUM ZIRCONIUM CYCLOSILICATE 10 GM PAK PO SCH (10:00)
[2024-02-21 10:39] VITALS: BP 141/65
--- NOTE | 2024-02-21 10:51 | NUR ---
PT'S O2 AT 83%, CHECKED ON PT AND HE WAS RETURNING FROM BATHROOM. ASKED PT TO PUT THE NC BACK ON. PT STATED HE WILL "PUT IT ON WHEN HE IS GOOD DAM AND READY AND IF I DONT LIKE THAT I CAN SHOVE IT UP MY ASS" PT SAT ON BED AND THREW NC ONTO BEDSIDE TABLE.
[2024-02-21] MEDS ORDERED: AZITHROMYCIN 500 MG in SODIUM CHLORIDE 0.9% 250 ML IV SCH (12:00)
--- NOTE | 2024-02-21 13:28 | NUR ---
EDUCATED PT ON USE OF IS, PT ABLE TO REACH 1000 WITH THE IS.
--- NOTE | 2024-02-21 13:54 | NUR ---
TELE CALLED TO REPORT PT IN SATTING LOW, CHECKED ON PT, PT RETURNING TO BED AFTER UP OUT OF BED TO USE BATHROOM, PT PUTTING NG TUBE BACK ON WITH NO ARGUMENTS.
[2024-02-21 14:37] VITALS: BP 127/85
[2024-02-21 19:01] VITALS: BP 144/81
--- NOTE | 2024-02-21 19:30 | NUR ---
PT SITTING UP ON THE BED WATCHING TV AT THIS TIME. ALERT AND ORIENTED X3. DENIES ANY PAIN AT THIS TIME. BREATHING IS EVEN AND UNLABORED. NO SIGNS OF DISTRESS NOTED AT THIS TIME. O2 VIA NC AT 3L ORDERED. EDEMA NOTED BILATERALLY ON HIS LEGS AND FEET +1 WITH REDDISH SKIN ON THE LOWER EXTREMITIES.DIMINISHED LUNG SOUNDS ALL THROUGHOUT LOBES. IV SITE APPEARS CLEAN AND HEALTHY WITHOUT ANY ABNORMALITIES. CALL LIGHT IN REACH AND SAFETY PRECAUTIONS ON PLACE.
[2024-02-21] MEDS ORDERED: SODIUM CHLORIDE 0.9% 1,000 ML IV SCH (21:25)
--- NOTE | 2024-02-21 23:46 | NUR ---
PT RESTING ON BED IN SUPINE POSITION. BREATHING IS EVEN AND UNLABORED. NO DISTRESS NOTED. O2 REMAINS ON PLACE ORDERED. TELE MONITOR SHOWING SR-85 AT THIS TIME. CALL LIGHT IN REACH AND SAFTEY PRECAUTIONS ON PLACE.
[2024-02-21 23:50] VITALS: BP 123/63
--- NOTE | 2024-02-22 04:00 | NUR ---
PT RESTING ON RIGHT LATERAL POSITION. NO SIGNS OF DITRESS NOTED AT THIS TIME. BREATHING IS EVEN AND UNLABORED. TELE MONITOR ON PLACE SHOWING SR WITH RBBB- 99 AT THIS TIME. [address] VIA BC AT 3L- PULSE OX-93. IVF NS INFUSING AT 50 MLS/HR VIA RIGHT A/C AT THIS TIME. CALL LIGHT IN REACH AND SAFETY PRECAUTIONS ON PLACE.
[2024-02-22 04:38] VITALS: BP 151/78
[2024-02-22 05:41] LABS: BASO% 0.1 % (0-3); EOS% 0.7 % (0-8); HEMATOCRIT 40.3 % (39.0-50.0); HEMOGLOBIN 12.8 g/dl (14.0-18.0); IMMATURE GRANULOCYTES 0.5 % (0.0-5.0); LYMPH% 10.7 % (15-41); MEAN CELL VOLUME 90.8 fL CALC (80.0-100.0); MEAN CORPUSCULAR HGB 28.8 pG CALC (26.0-32.0); MEAN CORPUSCULAR HGB CONC 31.8 g/dL CAL (32.0-36.0); MONO% 6.1 % (2-13); NEUT# 10.66 thou/uL (1.82-7.42); NEUT% 81.9 % (42-76); RED BLOOD COUNT 4.44 mill/uL (4.70-6.10); RED CELL DISTRI WIDTH 15.8 % (11.5-15.5)
[2024-02-22 05:52] LABS: URINE BILIRUBIN - DIPSTICK Negative (NEGATIVE); URINE BLOOD DIPSTICK Trace-lysed (NEGATIVE); URINE CLARITY Clear; URINE GLUCOSE - DIPSTICK 250 mg/dL (NEGATIVE); URINE KETONE Negative (NEGATIVE); URINE LEUK ESTERASE Negative (Negative); URINE NITRITE - DIPSTICK Negative (Negative); URINE PH 5.5 (4.5-8.0); URINE PROTEIN - DIPSTICK >=300 mg/dL (NEG-TRACE); URINE UROBILINOGEN - DIPSTICK 0.2 E.U./dL (0.2)
[2024-02-22 05:55] LABS: URINE COLOR Yellow
[2024-02-22 05:56] LABS: ALBUMIN 3.8 g/dL (3.2-5.0); BILIRUBIN, TOTAL 0.4 mg/dL (0.2-1.3); CREATININE 2.6 mg/dL (0.7-1.3); MAGNESIUM 2.2 mg/dL (1.6-2.3); TOTAL PROTEIN 6.1 g/dL (6.3-8.2)
[2024-02-22 05:59] LABS: URINE RBC 0-2 RBC/hpf (0-5)
[2024-02-22 06:01] LABS: POTASSIUM 5.4 mmol/l (3.5-5.1)
[2024-02-22 06:48] VITALS: BP 112/47
--- NOTE | 2024-02-22 07:06 | NUR ---
PT IS AOX4, RESPIRATIONS ARE EVEN AND UNLABORED ON 3L O2, RESPIRATIONS DO BECOME LABORED WITH ACTIVITY. LUNGS ARE DIM AT BILATERAL BASES, RIGHT UPPER LUNG SOUNDS COURSE, LEFT UPPER LUNG CLEAR BUT DIM. BOUEL SOUNDS ARE ACTIVE, RIGHT LOWER LEG WITH +1 PITTING EDEMA, RIGHT FOOT WITH TRACE PITTING EDEMA, LEFT FOOT WITH TRACE NONPITTING EDEMA, PEDAL PULSES ARE PALPABLE TO TOUCH, PT REPORT HEADACHE PAIN AT A 5 ON A 0-10 PAIN SCALE. WILL BRING PT PRN YULENOL FOR HEADACHE PAIN.
--- NOTE | 2024-02-22 10:45 | NUR ---
DR SANCHEZ AT BEDSIDE DISCUSSING PLAN OF CARE WITH PT AT THIS TIME.
[2024-02-22 10:54] VITALS: BP 126/73
[2024-02-22] MEDS ORDERED: NICOTINE TRANSDERMAL 21 MG/PATCH TD SCH (11:30)
[2024-02-22] MEDS ORDERED: Cholecalciferol 2,000 UNIT/TAB PO SCH (12:00)
--- NOTE | 2024-02-22 12:38 | NUR ---
pt napping at this time.
--- NOTE | 2024-02-22 13:45 | NUR ---
PT HAVING A CONGESTED SOUNDING COUGH BUT WAS UNABLE TO PRODUCE ANY PHLEM FROM IT. CALL PLACED TO RT TO PROVIDE PT WITH A BREATHING TX.
--- NOTE | 2024-02-22 13:50 | NUR ---
RT AT BEDSIDE NOW TO PROVIDE PT'S BREATHING TX.
[2024-02-22 16:06] VITALS: BP 127/50
[2024-02-22 18:57] VITALS: BP 149/68
--- NOTE | 2024-02-22 19:25 | NUR ---
PT SITTING ON THE EDGE OF THE BED. ALERT AND ORIENTED X3. RESPS ARE EVEN AND UNLABORED. NO SIGNS OF DISTRESS NOTED. [address] VIA NC AT 4L/ MIN WITH HUMIDIFIER. DIMINSHED/RONCHI LUNGS SOUNDS ON AUSCULTATION. STILL WITH DRY COUGH AT THIS TIME. INCENTIVE SPIROMETER WAS TEACHED AT THIS TIME AND DEMOSTRATED HOW TO USE AND UNDERSTANDING. EDEMA +1 MOTED ON LOWER EXTREMITIES WITH REDDISH SKIN. DENIES ANY ADDITIONAL NEEDS, CALL LIGHT IN REACH AND SAFETY PRECAUTIONS ON PLACE.
[2024-02-23] VITALS (7 sets, daily range): BP systolic 109–160; BP diastolic 73–86
--- NOTE | 2024-02-23 00:44 | NUR ---
PT SITTING UP ON THE EDGE OF THE CHAIR. ASKED IF HE WANTED TO GO BACK TO BED BUT PT SAID NO THAT HE IS OKAY SITTING UP. BREATHING IS EVEN AND UNALBORED. TELE MONITOR IN PLACE ORDERED CALL LIGHT ON REACH AND SAFETY PRECAUTIONS ON PLACE.
--- NOTE | 2024-02-23 02:50 | NUR ---
pt sitting up on th bed. pt offered a breathing treatment but refused at this time. call light on reach and safety precautions on place
--- NOTE | 2024-02-23 04:24 | NUR ---
PT RESTING ON LEFT SIDE. BREATHING IS EVEN AND UNLABORED. NO SIGS OF DISTRESS. O2 REMAINS ON PLACE, AND TELE MONITOR WELL. IVF NS INFUSING VIA RIGHT A/C. CALL LIGHT IN REACH AND SAFETY PRECAUTIONS ON PLACE.
[2024-02-23 05:29] LABS: BASO% 0.1 % (0-3); EOS% 1.2 % (0-8); HEMATOCRIT 36.4 % (39.0-50.0); HEMOGLOBIN 11.6 g/dl (14.0-18.0); IMMATURE GRANULOCYTES 0.7 % (0.0-5.0); LYMPH% 14.5 % (15-41); MEAN CELL VOLUME 90.8 fL CALC (80.0-100.0); MEAN CORPUSCULAR HGB 28.9 pG CALC (26.0-32.0); MEAN CORPUSCULAR HGB CONC 31.9 g/dL CAL (32.0-36.0); MONO% 6.4 % (2-13); NEUT# 5.62 thou/uL (1.82-7.42); NEUT% 77.1 % (42-76); RED BLOOD COUNT 4.01 mill/uL (4.70-6.10); RED CELL DISTRI WIDTH 15.9 % (11.5-15.5)
[2024-02-23 05:34] LABS: ALBUMIN 3.3 g/dL (3.2-5.0); BILIRUBIN, TOTAL 0.4 mg/dL (0.2-1.3); CREATININE 2.5 mg/dL (0.7-1.3); MAGNESIUM 2.2 mg/dL (1.6-2.3); POTASSIUM 4.9 mmol/l (3.5-5.1); TOTAL PROTEIN 5.5 g/dL (6.3-8.2)
--- NOTE | 2024-02-23 07:00 | NUR ---
SHIFT CHANGE REPORT, PT C/O NOT FEELING WELL AND TROUBLE BREATHING, ON ASSESSMENT O2 SAT 76%, CANULA FOUND DISCONNECTED FROM O2, RECONNECT TUBING, O2 UP TO 85% ENCOURAGED DEEP BREATHING, O2 UP TO 88%, RESPIRATORY THERAPIST CALLED AND GAVE TREATMENT, O2 UP TO 91%, PT REPORTS HE FEELS BETER. HE HAD ALSO C/O DIZZINESS BEFORT INTERVENTIONS DONE. TELE MONITOR IN PLACE, CALL WELLER IN REACH.
--- NOTE | 2024-02-23 12:00 | NUR ---
PT ANXIOUS AND STATES HE IS NOT STAYING HERE AND WANTS TO GO HOME. MD ROUNDED AND DISCUSSED PLAN OR CARE, PT THEN CHANGED HIS MIND AND WILL STAY.
[2024-02-23] MEDS ORDERED: LORazepam 0.5 MG/TAB PO PRN (12:20)
--- NOTE | 2024-02-23 16:49 | NUR ---
LYING IN BED IN SEMI FOWLERS POSITION, NO NEW COMPLAINS.
--- NOTE | 2024-02-23 20:00 | NUR ---
PT SITTING ON SIDE OF BED NO DISTRESS NOTED. HIS BREATHING IS SHALLOW ON NC 4L LUNGS COARSE BILATERAL O2 READING 91%. PT ENCOURAGE TO USE INCENTIVE SPIROMETER. BLE EDEMA NOTED +2 WITH ANGEL HOSDENISE ON. IV FLUIDS ON GOING WORKING PROPERLY. CALL LIGHT WITHIN REACH. PLAN OF CARE ONGOING.
[2024-02-24] VITALS (7 sets, daily range): BP systolic 117–152; BP diastolic 68–78
--- NOTE | 2024-02-24 00:29 | NUR ---
PT RESTING NO DISTRESS NOTED ON EXAM. IV FLUIDS ONGOING. CALL LIGHT WITHIN REACH O2 READING 90%. PLAN OF CARE ONGOING.
--- NOTE | 2024-02-24 04:24 | NUR ---
PT RESTING NO DISTRESS NOTED ON EXAM. CALL LIGHT WITHIN REACH. PLAN OF CARE ONGOING.
[2024-02-24 05:49] LABS: BASO% 0.1 % (0-3); EOS% 1.3 % (0-8); HEMATOCRIT 37.1 % (39.0-50.0); HEMOGLOBIN 11.8 g/dl (14.0-18.0); IMMATURE GRANULOCYTES 0.6 % (0.0-5.0); LYMPH% 14.3 % (15-41); MEAN CELL VOLUME 90.3 fL CALC (80.0-100.0); MEAN CORPUSCULAR HGB 28.7 pG CALC (26.0-32.0); MEAN CORPUSCULAR HGB CONC 31.8 g/dL CAL (32.0-36.0); MONO% 7.5 % (2-13); NEUT# 5.26 thou/uL (1.82-7.42); NEUT% 76.2 % (42-76); RED BLOOD COUNT 4.11 mill/uL (4.70-6.10); RED CELL DISTRI WIDTH 15.4 % (11.5-15.5)
[2024-02-24 05:53] LABS: ALBUMIN 3.4 g/dL (3.2-5.0); BILIRUBIN, TOTAL 0.5 mg/dL (0.2-1.3); CREATININE 2.3 mg/dL (0.7-1.3); MAGNESIUM 2.2 mg/dL (1.6-2.3); POTASSIUM 5.1 mmol/l (3.5-5.1); TOTAL PROTEIN 5.7 g/dL (6.3-8.2)
--- NOTE | 2024-02-24 07:38 | NUR ---
SHIFT CHANGE REPORT, PT SLEEPING SOUNDLY AND SNORING, O2 @ 4L VIA NC IN PLACE, TELE MONITOR IN PLACE, IVF INFUSING, CALL WELLER IN REACH AND BED LOCKED IN LOWEST POSITION.
--- NOTE | 2024-02-24 08:09 | NUR ---
ACID STRENGTH INSPECTOR CALLED REPORTING O2 LEVELS @ 84%, ON ASSISSMENT PT IN BR WITHOUT O2 IN PLACE, LEVELS CHECKED ON RETURN FROM BR = 70% ON R/A, O2 REAPPLIED, SATURATION UP TO 89% ON 4L O2. EXERTIONAL SOB AT THIS TIME.
[2024-02-24] MEDS ORDERED: cefTRIAXone SODIUM 2 GM in SODIUM CHLORIDE 0.9% 100 ML IV SCH (11:30)
--- NOTE | 2024-02-24 14:41 | NUR ---
Patient decides to leave AMA. Multiple attempts made to ecourage patient to remain here for continued treatment. Explained to patient all risks of leaving against medical advice including . Pt verbalized understanding of all risks. Pt also encouraged to return to [facility] at any time, especially if symptoms continue or become worse. Pt verbalized understanding.
== END 2024-02-24 14:34 | disposition left against medical advice (07) | DRG 193 ==
LOC: ED 08:35 → ED-I 10:15 → ED 10:39 → MS2 10:40
PROVIDERS: Family Medicine; Internal Medicine; Internal Medicine Nephrology; Nurse Practitioner Family; ADMIT Internal Medicine; ATTEND Internal Medicine
DX: J18.9 Pneumonia, unspecified organism (principal); J96.01 Acute respiratory failure with hypoxia; J96.02 Acute respiratory failure with hypercapnia; I13.0 Hypertensive heart and chronic kidney disease with heart failure and stage 1 through stage 4 chronic kidney disease, or unspecified chronic kidney disease; J44.1 Chronic obstructive pulmonary disease with (acute) exacerbation; J44.0 Chronic obstructive pulmonary disease with (acute) lower respiratory infection; N18.4 Chronic kidney disease, stage 4 (severe); N17.9 Acute kidney failure, unspecified; E86.9 Volume depletion, unspecified; E87.5 Hyperkalemia; G47.30 Sleep apnea, unspecified; E11.22 Type 2 diabetes mellitus with diabetic chronic kidney disease; I50.9 Heart failure, unspecified; E11.42 Type 2 diabetes mellitus with diabetic polyneuropathy; D64.9 Anemia, unspecified; E78.5 Hyperlipidemia, unspecified; F41.9 Anxiety disorder, unspecified; E55.9 Vitamin D deficiency, unspecified; F17.210 Nicotine dependence, cigarettes, uncomplicated; T41.5X6A Underdosing of therapeutic gases, initial encounter; Z91.128 Patient's intentional underdosing of medication regimen for other reason; Z79.4 Long term (current) use of insulin
CPT/HCPCS: J0456; J0696; J1644; J1815; J1940

== ENCOUNTER 2024-02-24 23:54 | Inpatient (IN) | payer SELFPAY ==
[~2024-02-24] VITALS: Ht 185.4 cm; Wt 125.2 kg
[2024-02-25] VITALS (34 sets, daily range): BP systolic 108–151; BP diastolic 50–95
[2024-02-25] MEDS ORDERED: methylPREDNISolone SODIUM SUCC 125 MG/2 ML SDV IV ONE (00:20)
[2024-02-25] MEDS ORDERED: IPRATROPIUM-Albuterol 0.5MG-2.5MG/3 ML NEB ONE (00:20)
[2024-02-25] MEDS ORDERED: ALBUTEROL SULFATE 2.5 MG VIAL IN ONE (00:20)
[2024-02-25] MEDS ORDERED: FUROSEMIDE 40 MG/4 ML SDV IV ONE (01:00)
[2024-02-25 01:15] LABS: BASO% 0.1 % (0-3); EOS% 2.7 % (0-8); HEMATOCRIT 33.9 % (39.0-50.0); HEMOGLOBIN 10.9 g/dl (14.0-18.0); IMMATURE GRANULOCYTES 0.7 % (0.0-5.0); LYMPH% 18.2 % (15-41); MEAN CELL VOLUME 88.5 fL CALC (80.0-100.0); MEAN CORPUSCULAR HGB 28.5 pG CALC (26.0-32.0); MEAN CORPUSCULAR HGB CONC 32.2 g/dL CAL (32.0-36.0); NEUT# 4.88 thou/uL (1.82-7.42); NEUT% 70.3 % (42-76); RED BLOOD COUNT 3.83 mill/uL (4.70-6.10); RED CELL DISTRI WIDTH 15.2 % (11.5-15.5)
[2024-02-25 01:27] LABS: ALBUMIN 3.6 g/dL (3.2-5.0); ALKALINE PHOSPHATASE 83 u/l (38-126); ANION GAP 10 (6-22 (CALC)); BILIRUBIN, TOTAL 0.4 mg/dL (0.2-1.3); BUN 46 mg/dL (8-23); BUN/CREATININE RATIO 20 (12-20 (CALC)); CARBON DIOXIDE 31 mmol/l (22-30); CHLORIDE 103 mmol/l (95-108); CREATININE 2.3 mg/dL (0.7-1.3); ESTIMATED GFR 31 ML/MIN (>=90 (CALC)); POTASSIUM 4.5 mmol/l (3.5-5.1); SGOT/AST 31 u/l (19-48); SODIUM 140 mmol/l (137-146); TOTAL PROTEIN 5.9 g/dL (6.3-8.2)
[2024-02-25] MEDS ORDERED: MAGNESIUM HYDROXIDE 30 ML UDC PO PRN (07:15)
[2024-02-25] MEDS ORDERED: ACETAMINOPHEN 325 MG/TAB PO PRN (07:15)
[2024-02-25] MEDS ORDERED: IPRATROPIUM-Albuterol 0.5MG-2.5MG/3 ML NEB PRN (07:20)
[2024-02-25] MEDS ORDERED: DEXTROSE 250 ML IV PRN ×2 (07:20)
[2024-02-25] MEDS ORDERED: INSULIN LISPRO 100 UNITS/ML ML SC SCH (07:30)
[2024-02-25] MEDS ORDERED: methylPREDNISolone Sod Succ 40 MG/ML SDV IV SCH (08:00)
[2024-02-25] MEDS ORDERED: INSULIN NPH ISOPHANE & REG (HU 100 UNITS/ML SC SCH (08:00)
[2024-02-25] MEDS ORDERED: DOXYCYCLINE HYCLATE 100 MG in SODIUM CHLORIDE 0.9% 100 ML IV SCH (08:30)
[2024-02-25] MEDS ORDERED: FUROSEMIDE 40 MG/TAB PO SCH (09:00)
[2024-02-25] MEDS ORDERED: GABAPENTIN 100 MG/CAP PO SCH (09:00)
[2024-02-25] MEDS ORDERED: amLODIPine BESYLATE 5 MG/TAB PO SCH (09:00)
[2024-02-25] MEDS ORDERED: ASPIRIN EC 81 MG/TAB PO SCH (09:00)
[2024-02-25] MEDS ORDERED: ATORVASTATIN CALCIUM 40 MG/TAB PO SCH (17:00)
[2024-02-25] MEDS ORDERED: ENOXAPARIN SODIUM 30 MG/0.3 ML INJ SC SCH (21:00)
[2024-02-25] MEDS ORDERED: FONDAPARINUX SODIUM 2.5 MG/0.5 ML SYR SC SCH (21:00)
[2024-02-26] VITALS (8 sets, daily range): BP systolic 122–159; BP diastolic 51–83
[2024-02-26 05:47] LABS: ALBUMIN 3.3 g/dL (3.2-5.0); BILIRUBIN, TOTAL 0.4 mg/dL (0.2-1.3); CREATININE 2.3 mg/dL (0.7-1.3); MAGNESIUM 2.1 mg/dL (1.6-2.3); TOTAL PROTEIN 5.5 g/dL (6.3-8.2)
[2024-02-26 05:48] LABS: HEMATOCRIT 35.2 % (39.0-50.0); HEMOGLOBIN 11.5 g/dl (14.0-18.0); MEAN CELL VOLUME 89.6 fL CALC (80.0-100.0); MEAN CORPUSCULAR HGB 29.3 pG CALC (26.0-32.0); MEAN CORPUSCULAR HGB CONC 32.7 g/dL CAL (32.0-36.0); RED BLOOD COUNT 3.93 mill/uL (4.70-6.10); RED CELL DISTRI WIDTH 14.6 % (11.5-15.5)
[2024-02-26 06:08] LABS: POTASSIUM 5.5 mmol/l (3.5-5.1)
[2024-02-26] MEDS ORDERED: SODIUM CHLORIDE 250 ML IV ONE (10:05)
[2024-02-27 00:08] VITALS: BP 105/54
[2024-02-27 05:36] LABS: HEMATOCRIT 33.1 % (39.0-50.0); HEMOGLOBIN 10.6 g/dl (14.0-18.0); MEAN CELL VOLUME 90.4 fL CALC (80.0-100.0); RED BLOOD COUNT 3.66 mill/uL (4.70-6.10); RED CELL DISTRI WIDTH 14.6 % (11.5-15.5)
[2024-02-27 05:48] LABS: BILIRUBIN, TOTAL 0.4 mg/dL (0.2-1.3); CREATININE 2.4 mg/dL (0.7-1.3); TOTAL PROTEIN 5.1 g/dL (6.3-8.2)
[2024-02-27 05:50] LABS: POTASSIUM 5.6 mmol/l (3.5-5.1)
[2024-02-27 08:30] VITALS: BP 117/85
[2024-02-27] MEDS ORDERED: SODIUM ZIRCONIUM CYCLOSILICATE 10 GM PAK PO SCH (09:00)
[2024-02-27] MEDS ORDERED: PREDNISONE10 MG PO (12:45)
[2024-02-27] MEDS ORDERED: VIBRAMYCIN100 M2 PO (12:45)
== END 2024-02-27 13:30 | disposition home or self-care (01) | DRG 291 ==
LOC: ED 23:54 → ED-I 02-25 02:30 → ED 02-25 03:47 → ICU 02-25 03:48
PROVIDERS: Family Medicine; ADMIT Internal Medicine; ATTEND Internal Medicine
PROC: 5A09457 Assistance with Respiratory Ventilation, 24-96 Consecutive Hours, Continuous Positive Airway Pressure (ICD-10-PCS; principal; 2024-02-25)
DX: I13.0 Hypertensive heart and chronic kidney disease with heart failure and stage 1 through stage 4 chronic kidney disease, or unspecified chronic kidney disease (principal); J18.9 Pneumonia, unspecified organism; J96.01 Acute respiratory failure with hypoxia; J96.02 Acute respiratory failure with hypercapnia; J44.0 Chronic obstructive pulmonary disease with (acute) lower respiratory infection; J44.1 Chronic obstructive pulmonary disease with (acute) exacerbation; E11.22 Type 2 diabetes mellitus with diabetic chronic kidney disease; N18.9 Chronic kidney disease, unspecified; I50.9 Heart failure, unspecified; E78.5 Hyperlipidemia, unspecified; E11.40 Type 2 diabetes mellitus with diabetic neuropathy, unspecified; D69.59 Other secondary thrombocytopenia; T45.515A Adverse effect of anticoagulants, initial encounter; F17.200 Nicotine dependence, unspecified, uncomplicated; Z79.4 Long term (current) use of insulin; Z91.190 Patient's noncompliance with other medical treatment and regimen due to financial hardship
CPT/HCPCS: J0696; J1815; J1940

== ENCOUNTER 2024-04-06 13:11 | Emergency (ER) | payer SELFPAY ==
[~2024-04-06] VITALS: Ht 185.4 cm; Wt 124.2 kg
[2024-04-06 13:42] VITALS: BP 148/76
[2024-04-06 14:00] VITALS: BP 142/72
[2024-04-06] MEDS ORDERED: ASPIRIN 81 LOW81 MG PO (14:21)
[2024-04-06] MEDS ORDERED: HUMULIN 70/30 K1 INJ SC (14:21)
[2024-04-06] MEDS ORDERED: NORVASC PO (14:21)
[2024-04-06] MEDS ORDERED: NEURONTIN100 MG PO (14:21)
[2024-04-06] MEDS ORDERED: LIPITOR40 M1 PO (14:21)
[2024-04-06] MEDS ORDERED: LASIX40 MG PO (14:21)
[2024-04-06 14:31] VITALS: BP 155/80
[2024-04-06 15:01] VITALS: BP 141/81
[2024-04-06] MEDS ORDERED: DICLOFENAC SODIUM2 % TOP (15:09)
[2024-04-06 15:20] VITALS: BP 141/81
== END 2024-04-06 15:20 | disposition home or self-care (01) | DRG 554 ==
LOC: ED 13:11
DX: M17.11 Unilateral primary osteoarthritis, right knee (principal); I13.0 Hypertensive heart and chronic kidney disease with heart failure and stage 1 through stage 4 chronic kidney disease, or unspecified chronic kidney disease; E11.22 Type 2 diabetes mellitus with diabetic chronic kidney disease; I50.9 Heart failure, unspecified; N18.9 Chronic kidney disease, unspecified; I25.10 Atherosclerotic heart disease of native coronary artery without angina pectoris; E78.5 Hyperlipidemia, unspecified; J44.9 Chronic obstructive pulmonary disease, unspecified; G47.30 Sleep apnea, unspecified; F17.210 Nicotine dependence, cigarettes, uncomplicated; Z79.4 Long term (current) use of insulin; Z91.128 Patient's intentional underdosing of medication regimen for other reason

== ENCOUNTER 2024-04-20 16:01 | Inpatient (IN) | payer SELFPAY ==
[2024-04-20] VITALS (16 sets, daily range): BP systolic 90–166; BP diastolic 46–128
[~2024-04-20] VITALS: Ht 185.4 cm; Wt 100.0 kg
[~2024-04-20 16:01] MED LIST changes: +ASPIRIN 81 LOW81 MG PO; +DICLOFENAC SODIUM2 % TOP; +HUMULIN 70/30 K1 INJ SC; +LASIX40 MG PO; +NEURONTIN100 MG PO; +NORVASC PO
[2024-04-20] MEDS ORDERED: IPRATROPIUM-Albuterol 0.5MG-2.5MG/3 ML NEB ONE (16:25)
[2024-04-20 16:28] LABS: BASO% 0.2 % (0-3); EOS% 2.2 % (0-8); HEMOGLOBIN 10.2 g/dl (14.0-18.0); IMMATURE GRANULOCYTES 0.6 % (0.0-5.0); LYMPH% 15.5 % (15-41); MEAN CELL VOLUME 87.7 fL CALC (80.0-100.0); MEAN CORPUSCULAR HGB 27.9 pG CALC (26.0-32.0); MEAN CORPUSCULAR HGB CONC 31.9 g/dL CAL (32.0-36.0); NEUT# 5.96 thou/uL (1.82-7.42); NEUT% 74.5 % (42-76); RED BLOOD COUNT 3.65 mill/uL (4.70-6.10); RED CELL DISTRI WIDTH 16.2 % (11.5-15.5)
[2024-04-20 16:40] LABS: ALKALINE PHOSPHATASE 95 u/l (38-126); BILIRUBIN, TOTAL 0.5 mg/dL (0.2-1.3); CARBON DIOXIDE 31 mmol/l (22-30); CHLORIDE 102 mmol/l (95-108); CREATININE 2.2 mg/dL (0.7-1.3); ESTIMATED GFR 33 ML/MIN (>=90 (CALC)); SGOT/AST 38 u/l (19-48); SODIUM 138 mmol/l (137-146)
[2024-04-20 16:46] LABS: ALBUMIN 3.7 g/dL (3.2-5.0); ANION GAP 10 (6-22 (CALC)); BUN 36 mg/dL (8-23); BUN/CREATININE RATIO 16 (12-20 (CALC)); POTASSIUM 5.4 mmol/l (3.5-5.1)
[2024-04-20] MEDS ORDERED: AZITHROMYCIN 500 MG in SODIUM CHLORIDE 0.9% 250 ML IV STA (17:17)
[2024-04-20] MEDS ORDERED: SODIUM CHLORIDE 0.9% 1,000 ML IV ONE (17:20)
[2024-04-20] MEDS ORDERED: MAGNESIUM HYDROXIDE 30 ML UDC PO PRN (20:20)
[2024-04-20] MEDS ORDERED: ACETAMINOPHEN 325 MG/TAB PO PRN (20:20)
[2024-04-20] MEDS ORDERED: DEXTROSE 250 ML IV PRN ×2 (20:20→20:25)
[2024-04-20] MEDS ORDERED: IPRATROPIUM-Albuterol 0.5MG-2.5MG/3 ML NEB PRN (20:25)
[2024-04-20] MEDS ORDERED: CEFEPIME HYDROCHLORIDE 1 GM in SODIUM CHLORIDE 0.9% 50 ML IV SCH (20:25)
[2024-04-20] MEDS ORDERED: Heparin SODIUM (Porcine) 5,000 UNITS/ML SDV SC SCH (21:00)
[2024-04-20] MEDS ORDERED: INSULIN LISPRO 100 UNITS/ML ML SC SCH (21:00)
[2024-04-20] MEDS ORDERED: INSULIN NPH ISOPHANE & REG (HU 100 UNITS/ML SC SCH (21:00)
[2024-04-20] MEDS ORDERED: methylPREDNISolone Sod Succ 40 MG/ML SDV IV SCH (21:00)
[2024-04-21 03:38] VITALS: BP 140/71
[2024-04-21 04:27] VITALS: BP 140/71
[2024-04-21 07:04] VITALS: BP 132/76
[2024-04-21 10:17] VITALS: BP 139/75
[2024-04-21] MEDS ORDERED: ASPIRIN 81 MG/TAB PO SCH (10:30)
[2024-04-21] MEDS ORDERED: FUROSEMIDE 40 MG/TAB PO SCH (10:30)
[2024-04-21] MEDS ORDERED: GABAPENTIN 100 MG/CAP PO SCH (10:30)
[2024-04-21] MEDS ORDERED: amLODIPine BESYLATE 5 MG/TAB PO SCH (10:30)
[2024-04-21] MEDS ORDERED: IPRATROPIUM-Albuterol 0.5MG-2.5MG/3 ML NEB SCH (11:00)
[2024-04-21 11:21] LABS: ALBUMIN 3.6 g/dL (3.2-5.0); BILIRUBIN, TOTAL 0.4 mg/dL (0.2-1.3); CREATININE 2.2 mg/dL (0.7-1.3); MAGNESIUM 2.1 mg/dL (1.6-2.3)
[2024-04-21 11:58] LABS: POTASSIUM 6.1 mmol/l (3.5-5.1)
[2024-04-21] MEDS ORDERED: SODIUM ZIRCONIUM CYCLOSILICATE 10 GM PAK PO SCH (13:00)
[2024-04-21 14:44] VITALS: BP 111/71
[2024-04-21] MEDS ORDERED: AZITHROMYCIN 500 MG in SODIUM CHLORIDE 0.9% 250 ML IV SCH (15:00)
[2024-04-21 18:21] VITALS: BP 131/66
[2024-04-21] MEDS ORDERED: CEFEPIME HYDROCHLORIDE 1 GM in SODIUM CHLORIDE 0.9% 50 ML IV SCH (21:00)
[2024-04-21] MEDS ORDERED: ATORVASTATIN CALCIUM 40 MG/TAB PO SCH (21:00)
[2024-04-22] VITALS (7 sets, daily range): BP systolic 106–136; BP diastolic 42–72
[2024-04-22 05:49] LABS: BASO% 0.2 % (0-3); EOS% 1.3 % (0-8); HEMATOCRIT 31.3 % (39.0-50.0); IMMATURE GRANULOCYTES 0.2 % (0.0-5.0); LYMPH% 16.2 % (15-41); MEAN CELL VOLUME 88.4 fL CALC (80.0-100.0); MEAN CORPUSCULAR HGB 28.2 pG CALC (26.0-32.0); MEAN CORPUSCULAR HGB CONC 31.9 g/dL CAL (32.0-36.0); MONO% 6.8 % (2-13); NEUT# 6.51 thou/uL (1.82-7.42); NEUT% 75.3 % (42-76); RED BLOOD COUNT 3.54 mill/uL (4.70-6.10)
[2024-04-22 06:13] LABS: ALBUMIN 3.3 g/dL (3.2-5.0); BILIRUBIN, TOTAL 0.4 mg/dL (0.2-1.3); CREATININE 2.5 mg/dL (0.7-1.3); MAGNESIUM 2.2 mg/dL (1.6-2.3); POTASSIUM 4.6 mmol/l (3.5-5.1); TOTAL PROTEIN 5.5 g/dL (6.3-8.2)
[2024-04-22] MEDS ORDERED: methylPREDNISolone Sod Succ 40 MG/ML SDV IV SCH (09:00)
[2024-04-22] MEDS ORDERED: ASPIRIN 81 LOW81 MG PO (09:57)
[2024-04-22] MEDS ORDERED: HUMULIN 70/30 K1 INJ SC (09:57)
[2024-04-22] MEDS ORDERED: LIPITOR40 M1 PO (09:57)
[2024-04-22] MEDS ORDERED: LASIX40 MG PO (09:57)
[2024-04-22] MEDS ORDERED: NEURONTIN100 MG PO (09:57)
[2024-04-22] MEDS ORDERED: PREDNISONE10 MG PO (09:58)
[2024-04-22] MEDS ORDERED: DOXYCYCLINE HY100 M1 PO (09:59)
== END 2024-04-22 11:15 | disposition home or self-care (01) | DRG 190 ==
LOC: ED 16:01 → ED-I 16:42 → ED 16:42 → MS2 18:18
PROVIDERS: Family Medicine; Nurse Practitioner Family; ADMIT Internal Medicine; ATTEND Internal Medicine
DX: J44.1 Chronic obstructive pulmonary disease with (acute) exacerbation (principal); J18.9 Pneumonia, unspecified organism; I13.0 Hypertensive heart and chronic kidney disease with heart failure and stage 1 through stage 4 chronic kidney disease, or unspecified chronic kidney disease; J96.11 Chronic respiratory failure with hypoxia; J44.0 Chronic obstructive pulmonary disease with (acute) lower respiratory infection; E11.65 Type 2 diabetes mellitus with hyperglycemia; E11.22 Type 2 diabetes mellitus with diabetic chronic kidney disease; N18.9 Chronic kidney disease, unspecified; I50.9 Heart failure, unspecified; D63.1 Anemia in chronic kidney disease; E11.40 Type 2 diabetes mellitus with diabetic neuropathy, unspecified; F17.200 Nicotine dependence, unspecified, uncomplicated; Z99.81 Dependence on supplemental oxygen; Z79.4 Long term (current) use of insulin
CPT/HCPCS: J0456; J0692; J0696; J1644; J1815

== ENCOUNTER 2024-05-12 19:31 | Emergency (ER) | payer SELFPAY ==
[~2024-05-12] VITALS: Ht 185.4 cm; Wt 98.0 kg
[~2024-05-12 19:31] MED LIST changes: +DOXYCYCLINE HY100 M1 PO
[2024-05-12 19:45] VITALS: BP 145/80
[2024-05-12] MEDS ORDERED: IPRATROPIUM-Albuterol 0.5MG-2.5MG/3 ML NEB ONE (19:45)
[2024-05-12] MEDS ORDERED: methylPREDNISolone SODIUM SUCC 125 MG/2 ML SDV IV ONE (19:45)
[2024-05-12] MEDS ORDERED: ALBUTEROL SULFATE 2.5 MG VIAL IN ONE (19:50)
[2024-05-12] MEDS ORDERED: BUMETANIDE 1 MG/4 ML VIAL IV ONE (19:50)
[2024-05-12 20:00] VITALS: BP 152/89
[2024-05-12 20:31] VITALS: BP 82/55
[2024-05-12 20:36] LABS: BASO% 0.3 % (0-3); EOS% 3.1 % (0-8); HEMATOCRIT 28.5 % (39.0-50.0); HEMOGLOBIN 9.3 g/dl (14.0-18.0); IMMATURE GRANULOCYTES 0.5 % (0.0-5.0); LYMPH% 14.5 % (15-41); MEAN CELL VOLUME 84.3 fL CALC (80.0-100.0); MEAN CORPUSCULAR HGB 27.5 pG CALC (26.0-32.0); MEAN CORPUSCULAR HGB CONC 32.6 g/dL CAL (32.0-36.0); MONO% 6.7 % (2-13); NEUT# 4.9 thou/uL (1.82-7.42); NEUT% 74.9 % (42-76); RED BLOOD COUNT 3.38 mill/uL (4.70-6.10); RED CELL DISTRI WIDTH 15.4 % (11.5-15.5)
[2024-05-12 20:45] VITALS: BP 130/89
[2024-05-12 20:47] LABS: ALBUMIN 3.8 g/dL (3.2-5.0); ALKALINE PHOSPHATASE 111 u/l (38-126); ANION GAP 12 (6-22 (CALC)); BILIRUBIN, TOTAL 0.4 mg/dL (0.2-1.3); BUN 29 mg/dL (8-23); BUN/CREATININE RATIO 11 (12-20 (CALC)); CARBON DIOXIDE 28 mmol/l (22-30); CHLORIDE 96 mmol/l (95-108); CREATININE 2.7 mg/dL (0.7-1.3); ESTIMATED GFR 26 ML/MIN (>=90 (CALC)); POTASSIUM 4.6 mmol/l (3.5-5.1); SGOT/AST 29 u/l (19-48)
[2024-05-12 20:54] LABS: SODIUM 131 mmol/l (137-146)
[2024-05-12] MEDS ORDERED: INSULIN REGULAR (HUMAN) 100 UNIT/ML INJ IV ONE (20:55)
[2024-05-12] MEDS ORDERED: INSULIN REGULAR (HUMAN) 100 UNIT/ML INJ SC ONE (20:55)
[2024-05-12] MEDS ORDERED: LASIX 40 MG TAB40 MG PO (21:43)
[2024-05-12] MEDS ORDERED: METOLAZONE5 MG PO (21:43)
[2024-05-12 22:00] VITALS: BP 130/89
== END 2024-05-12 22:00 | disposition home or self-care (01) | DRG 293 ==
LOC: ED 19:31
PROVIDERS: Family Medicine
DX: I13.0 Hypertensive heart and chronic kidney disease with heart failure and stage 1 through stage 4 chronic kidney disease, or unspecified chronic kidney disease (principal); E11.22 Type 2 diabetes mellitus with diabetic chronic kidney disease; I50.9 Heart failure, unspecified; N18.9 Chronic kidney disease, unspecified; E11.65 Type 2 diabetes mellitus with hyperglycemia; J44.9 Chronic obstructive pulmonary disease, unspecified; F17.200 Nicotine dependence, unspecified, uncomplicated; Z99.81 Dependence on supplemental oxygen; Z79.4 Long term (current) use of insulin; Z20.822 Contact with and (suspected) exposure to COVID-19
CPT/HCPCS: J1939

== ENCOUNTER 2024-06-05 20:50 | Emergency (ER) | payer SELFPAY ==
[~2024-06-05] VITALS: Ht 185.4 cm; Wt 120.5 kg
[2024-06-05] VITALS (8 sets, daily range): BP systolic 97–156; BP diastolic 61–103
[~2024-06-05 20:50] MED LIST changes: +METOLAZONE5 MG PO
[2024-06-05] MEDS ORDERED: INSULIN REGULAR (HUMAN) 100 UNIT/ML INJ IV ONE ×2 (21:15→22:00)
[2024-06-05] MEDS ORDERED: INSULIN REGULAR (HUMAN) 100 UNIT/ML INJ SC ONE (21:15)
[2024-06-05] MEDS ORDERED: MECLIZINE HCL 25 MG/TAB PO ONE (21:15)
[2024-06-05] MEDS ORDERED: KETOROLAC TROMETHAMINE 30 MG/ML SDV IV ONE (21:15)
[2024-06-05 21:29] LABS: BASO% 0.1 % (0-3); EOS% 1.5 % (0-8); HEMATOCRIT 27.9 % (39.0-50.0); HEMOGLOBIN 9.5 g/dl (14.0-18.0); IMMATURE GRANULOCYTES 0.4 % (0.0-5.0); LYMPH% 16.6 % (15-41); MEAN CORPUSCULAR HGB CONC 34.1 g/dL CAL (32.0-36.0); MONO% 6.5 % (2-13); NEUT# 5.67 thou/uL (1.82-7.42); NEUT% 74.9 % (42-76); RED BLOOD COUNT 3.66 mill/uL (4.70-6.10); RED CELL DISTRI WIDTH 14.8 % (11.5-15.5)
[2024-06-05 21:31] LABS: MEAN CELL VOLUME 76.2 fL CALC (80.0-100.0)
[2024-06-05 21:43] LABS: ALBUMIN 3.6 g/dL (3.2-5.0); BILIRUBIN, TOTAL 0.5 mg/dL (0.2-1.3); CREATININE 2.7 mg/dL (0.7-1.3); POTASSIUM 4.3 mmol/l (3.5-5.1); TOTAL PROTEIN 5.7 g/dL (6.3-8.2)
[2024-06-05] MEDS ORDERED: MECLIZINE25 MG PO (23:25)
== END 2024-06-05 23:33 | disposition home or self-care (01) | DRG 638 ==
LOC: ED 20:50
PROVIDERS: Family Medicine
DX: E11.65 Type 2 diabetes mellitus with hyperglycemia (principal); R42 Dizziness and giddiness; I13.0 Hypertensive heart and chronic kidney disease with heart failure and stage 1 through stage 4 chronic kidney disease, or unspecified chronic kidney disease; I50.9 Heart failure, unspecified; E11.22 Type 2 diabetes mellitus with diabetic chronic kidney disease; N18.9 Chronic kidney disease, unspecified; J44.9 Chronic obstructive pulmonary disease, unspecified; F17.200 Nicotine dependence, unspecified, uncomplicated; Z79.4 Long term (current) use of insulin